=== PATIENT | male | born 1970 | race Caucasian/White ===

== ENCOUNTER → 2022-04-29 08:21 | Outpatient (BNVA) | payer OTHER, SELFPAY | PROVIDERS: PCP Internal Medicine; Visit Provider Internal Medicine | DX: S39.011D Strain of muscle, fascia and tendon of abdomen, subsequent encounter (principal); S39.012D Strain of muscle, fascia and tendon of lower back, subsequent encounter; W01.0XXD Fall on same level from slipping, tripping and stumbling without subsequent striking against object, subsequent encounter | CPT/HCPCS: 73521; 99203 ==

== ENCOUNTER → 2022-05-04 13:26 | Outpatient (BNVA) | payer OTHER, SELFPAY | PROVIDERS: PCP Internal Medicine; Visit Provider Internal Medicine | DX: S39.011D Strain of muscle, fascia and tendon of abdomen, subsequent encounter (principal); S76.312D Strain of muscle, fascia and tendon of the posterior muscle group at thigh level, left thigh, subsequent encounter; W19.XXXD Unspecified fall, subsequent encounter | CPT/HCPCS: 99213 ==

== ENCOUNTER → 2022-05-10 10:33 | Outpatient (BNVA) | payer OTHER, SELFPAY | PROVIDERS: PCP Internal Medicine; Visit Provider Internal Medicine | DX: S39.011D Strain of muscle, fascia and tendon of abdomen, subsequent encounter (principal); S76.312D Strain of muscle, fascia and tendon of the posterior muscle group at thigh level, left thigh, subsequent encounter; W19.XXXD Unspecified fall, subsequent encounter | CPT/HCPCS: 99213 ==

== ENCOUNTER → 2022-05-17 12:54 | Outpatient (BNVA) | payer OTHER, SELFPAY | PROVIDERS: PCP Internal Medicine; Visit Provider Internal Medicine | DX: M79.652 Pain in left thigh (principal); S76.312A Strain of muscle, fascia and tendon of the posterior muscle group at thigh level, left thigh, initial encounter; W19.XXXA Unspecified fall, initial encounter | CPT/HCPCS: 99213 ==

== ENCOUNTER → 2022-05-25 10:40 | Outpatient (BNVA) | payer OTHER, SELFPAY | PROVIDERS: PCP Internal Medicine; Visit Provider Internal Medicine | DX: M79.662 Pain in left lower leg (principal) | CPT/HCPCS: 99213 ==

== ENCOUNTER 2022-05-26 07:21 | Outpatient (REF) | payer OTHER, SELFPAY ==
--- NOTE | ~2022-05-26 | MR_ITS ---
EXAMINATION: MRI FEMUR WITHOUT CONTRAST, LEFT CLINICAL INFORMATION: Left hamstring and groin strain. Thigh pain following injury on 03/03/2022. Persistent pain. COMPARISON: None TECHNIQUE: Multisequence MR imaging of the left femur was obtained without contrast on a high field strength scanner. FINDINGS: BONE: No stress reaction, fracture, or avascular crisis. No evidence of acute osseous injury. No concerning lytic or blastic osseous lesion. MUSCLES/TENDONS: Mild edema adjacent to the proximal left hamstring tendon with undersurface fluid signal measuring 1.8 cm in craniocaudal dimension and mild reactive marrow edema within the adjacent ischial tuberosity. No full-thickness tendon tear or tendon retraction. The remaining visualized muscles and tendons are unremarkable without edema or evidence of acute injury. SOFT TISSUES: No abnormal soft tissue mass or fluid collection. The visualized intrapelvic structures are unremarkable. MR/MR femur LT wo con IMPRESSION: Proximal left hamstring tendinosis with undersurface partial tearing measuring 1.8 cm in cranial caudal dimension. No transverse tendon tear or tendon retraction.
== END 2022-05-26 07:22 | disposition home or self-care (01) ==
LOC: HO.MRI 07:21
PROVIDERS: Visit Provider Internal Medicine
DX: S76.912D Strain of unspecified muscles, fascia and tendons at thigh level, left thigh, subsequent encounter (principal); S39.011D Strain of muscle, fascia and tendon of abdomen, subsequent encounter
CPT/HCPCS: 73718

== ENCOUNTER → 2022-06-04 10:07 | Outpatient (BNVA) | payer OTHER, SELFPAY | PROVIDERS: PCP Internal Medicine; Visit Provider Physician Assistant Medical | DX: S76.312D Strain of muscle, fascia and tendon of the posterior muscle group at thigh level, left thigh, subsequent encounter (principal); W01.0XXD Fall on same level from slipping, tripping and stumbling without subsequent striking against object, subsequent encounter | CPT/HCPCS: 99213 ==

== ENCOUNTER → 2022-06-17 10:04 | Outpatient (BNVA) | payer OTHER, SELFPAY | PROVIDERS: PCP Internal Medicine; Visit Provider Physician Assistant | DX: S76.312A Strain of muscle, fascia and tendon of the posterior muscle group at thigh level, left thigh, initial encounter (principal) | CPT/HCPCS: 99202 ==

== ENCOUNTER 2022-07-09 14:00 | Outpatient (RCR) | payer OTHER, SELFPAY ==
--- NOTE | 2022-05-13 10:32 | MHC.PT.EP ---
[facility] [place] Office [place] Office [address] [phone] F: [phone] F: [phone] F: [phone] F: [phone] Physical Therapy Plan of Care Date of Evaluation: Date of Surgery: NA Diagnosis: L pelvic strain and R groin strain Assessment: Gus is a 51 year old male who is referred to PT for L pelvic strain and R groin strain . He injured himself at work about 2 months back following a fall in split. He has had no resolution of pain following the fall. Per pt his symptoms are about the same and has pain with work activities which require him to walk, negotiate stairs and perform step ups. On PT examination he presented with TTP over L hamstring proximally, L ischial tuberosity, R groin, 7/10 pain with weight bearing, decreased L hip and knee ROM, decreased muscle strength in B hip and knee, altered posture, balance and gait. He is independent with ADLS however has pain with activities like dressing lower body. 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 He would benefit from skilled PT to address the aforementioned impairments and improve tolerance to functional activities. Frequency and Duration: The patient will be seen 2/week for 5 weeks Short Term Goals: 1. Pt will have 50% decrease in pain which will help him sit symmetrically for 30 minutes in 2 weeks. 2. Pt will be able to move hip and knee through full plane of motion without pain which will enable him to negotiate stairs with a pain no more than 2/10 in Penitentiary Goals: 1. Pt will demonstrate an increase in muscle strength by 1/2 grade which will help him walk for 30 minutes without pain in 4 weeks. 2. Pt will be independent with HEP and return to PLOF in 5 weeks. Treatment Plan: Modalities to reduce pain, spasms and effusion. Manual therapy to restore motion and function. Therapeutic exercise to improve strength and flexibility. Neuromuscular re-education for posture and balance. Therapeutic activities to return to functional activities of daily living. Electronically signed by: Reina Lacey PT DPT Please sign and return to therapist. Thank you for your referral.
--- NOTE | 2022-07-09 15:03 | MHC.PT.DC ---
[facility] [place] Office [place] Office [place] Office [address] [phone] F: [phone] F: [phone] F: [phone] F: [phone] Physical Therapy Discharge Report Diagnosis: L pelvic strain and R groin strain Date of Surgery: NA Date of Evaluation: 05/13/22 Date of Discharge: 07/09/22 Treatments to Date: 16 Cancellations to Date: 0 No Shows to Date: 0 Discharge Status: Improved Function Independent with HEP Discharge Summary: Gus has completed 16 PT visits. He reports of having 60% improvement in his symptoms but still feels the pain in his groin and hamstring. He has improved significantly and is independent with all HEPs. He is therefore being d/c from PT to HEP. He was advised to continue with stretches and strengthening. In PT he has been able perform lifting of weighted boxes and pushing weighted objects. He had no increase in pain or discomfort with this. He is therefore being d/c from PT today. Electronically signed by: Reina Lacey, PT DPT Please sign and return to therapist. Thank you for your referral.
== END 2022-07-09 15:03 | disposition home or self-care (01) ==
LOC: HO.PT 14:00
PROVIDERS: Visit Provider Internal Medicine
DX: S39.013D Strain of muscle, fascia and tendon of pelvis, subsequent encounter (principal); S39.011D Strain of muscle, fascia and tendon of abdomen, subsequent encounter
CPT/HCPCS: 97014; 97035; 97110; 97140; 97161; 97530

== ENCOUNTER → 2022-07-15 10:55 | Outpatient (BNVA) | payer OTHER, BC, SELFPAY | PROVIDERS: PCP Internal Medicine; Visit Provider Physician Assistant | DX: S76.312D Strain of muscle, fascia and tendon of the posterior muscle group at thigh level, left thigh, subsequent encounter (principal) | CPT/HCPCS: 99212 ==

== ENCOUNTER → 2022-08-12 12:58 | Outpatient (BNVA) | payer OTHER, MEDICAID, SELFPAY | PROVIDERS: PCP Internal Medicine; Visit Provider Physician Assistant | DX: S76.312D Strain of muscle, fascia and tendon of the posterior muscle group at thigh level, left thigh, subsequent encounter (principal) | CPT/HCPCS: 99212 ==

== ENCOUNTER → 2022-09-13 12:54 | Outpatient (BNVA) | payer OTHER, MEDICAID, SELFPAY | PROVIDERS: PCP Internal Medicine; Visit Provider Physician Assistant | DX: S76.312A Strain of muscle, fascia and tendon of the posterior muscle group at thigh level, left thigh, initial encounter (principal) | CPT/HCPCS: 99212 ==

== ENCOUNTER → 2022-10-26 13:24 | Outpatient (BNVA) | payer OTHER, SELFPAY | PROVIDERS: PCP Internal Medicine; Visit Provider Physician Assistant | DX: S76.312D Strain of muscle, fascia and tendon of the posterior muscle group at thigh level, left thigh, subsequent encounter (principal) | CPT/HCPCS: 99212 ==

== ENCOUNTER 2022-11-10 14:00 | Outpatient (RCR) | payer OTHER, SELFPAY ==
--- NOTE | 2022-10-01 13:34 | MHC.PT.EP ---
[facility] [place] Office [place] Office [place] Office [address] [phone] F: [phone] F: [phone] F: [phone] F: [phone] Physical Therapy Plan of Care Date of Evaluation: Date of Surgery: N/A Diagnosis: strain of muscle, fascia, and tendon of the posterior muscle group at thigh level, left thigh Left hamstring muscle strain Assessment: Pt is a pleasant 51yo M who presents to PT with L hamstring pain after falling on 03/03/22 resulting in landing in split position. He was treated for PT at this facility for 16 visits from 05/13/22-07/09/22 and continues to have pain in L proximal hamstring. He presents to PT with current impairments in pain, decreased L hip ROM, decreased L LE strength, decreased core stabilization, soft tissue restrictions, decreased muscle length, and impaired gait. He is limited functionally by prolonged standing, prolonged walking, squatting, and stair navigation. He is a good candidate for skilled PT in order to address current impairments to facilitate return to PLOF. He is recommended to be seen 2x/week for 3 weeks and will be reassessed at that time. Frequency and Duration: The patient will be seen 2x/week for 3 weeks Short Term Goals: Pt will be I with HEP to promote self management of symptoms Pt will improve L hip ext strength to at least 4-/5 Senior Living Goals: Pt will tolerate standing and walking > 60 min with improved gait mechanics and minimal to no pain Pt will improve L hip extension strength by 1 grade to assist with standing functional tasks Pt will demonstrate improvements in function as evidenced by statistically significant improvement in LEFI outcome measure Treatment Plan: Modalities to reduce pain, spasms and effusion. Manual therapy to restore motion and function. Therapeutic exercise to improve strength and flexibility. Neuromuscular re-education for posture and balance. Therapeutic activities to return to functional activities of daily living. Electronically signed by: Milagro Cox, PT, DPT Please sign and return to therapist. Thank you for your referral.
--- NOTE | 2022-11-10 15:21 | MHC.PT.DC ---
[facility] [place] Office [place] Office [place] Office [address] [phone] F: [phone] F: [phone] F: [phone] F: [phone] Physical Therapy Discharge Report Diagnosis: strain of muscle, fascia, and tendon of the posterior muscle group at thigh level, left thigh Left hamstring muscle strain Date of Surgery: N/A Date of Evaluation: 09/30/22 Date of Discharge: 11/10/22 Treatments to Date: 11 Cancellations to Date: 0 No Shows to Date: 0 Discharge Status: Achieved Goals Improved Function Independent with HEP Recommend MD Follow-up Discharge Summary: Pt has made good progress since SOC. He has met his STGs and LTGs. He has improved ROM and strength to WFL throughout L LE. He reports overall feeling much better but does report he continues to have pain 3-4/10 with work related tasks including repetitive stair climbing and prolonged standing/walking. Pt is I with HEP. Pt is being D/C from skilled PT. Provided pt with printed, updated copy of HEP and pt verbalized understanding. I recommend pt perform HEP consistently for a few weeks and follow up with MD if pain persists, pt verbalized understanding and reports no further questions or concerns for PT at this time. Electronically signed by: Milagro Cox, PT, DPT Please sign and return to therapist. Thank you for your referral.
== END 2022-11-10 15:22 | disposition home or self-care (01) ==
LOC: HO.PT 14:00
PROVIDERS: Visit Provider Physician Assistant
DX: S76.312A Strain of muscle, fascia and tendon of the posterior muscle group at thigh level, left thigh, initial encounter (principal)
CPT/HCPCS: 97110; 97162; 97164

== ENCOUNTER 2022-11-12 15:23 | Emergency (ER) | payer OTHER, SELFPAY ==
--- NOTE | ~2022-11-12 | XR_ITS ---
EXAMINATION: XR CHEST CLINICAL INFORMATION: Cough, fever COMPARISON: 02/11/2020 TECHNIQUE: 2 views of the chest were obtained. FINDINGS: Lungs are clear. No focal consolidation or mass. Normal pulmonary vascularity. No pleural effusion or pneumothorax. Normal heart size. No acute osseous abnormality. XR/XR chest 2V IMPRESSION: No acute pulmonary disease.
[2022-11-12 16:00] VITALS: BP 134/78; PULSE 63; RESP 18; TEMP 37; O2SAT 92; BMI 34.2
--- NOTE | 2022-11-12 16:03 | ED.URI ---
HPI - URI/Sore Throat General Chief Complaint: Upper Respiratory Symptoms <Josselin Jimenez NP - Last Filed: 11/12/22 16:05> Stated Complaint: Cough Not Feeling Well <Josselin Jimenez NP - Last Filed: 11/12/22 16:05> Time Seen by Provider: 11/12/22 17:00 <Josselin Jimenez NP - Last Filed: 11/12/22 16:05> Source: patient <SHANA Trinh - Last Filed: 11/12/22 18:31> Mode of arrival: ambulatory <SHANA Trinh Last Filed: 11/12/22 18:31> Limitations: no limitations <SHANA Trinh Last Filed: 11/12/22 18:31> History of Present Illness HPI Narrative: 51 year old male presents with subjective fever, dry cough, malaise, fatigue, shortness of breath x1 week. Patient tells me the cough is a dry cough, he tells me he has been progressively worsening he tells me he has chest discomfort when he coughs however not at rest. Reports shortness of breath with coughing. No history of PE or DVT. No sick contacts. Denies fevers, chills, headache, vision changes, dizziness, nausea, vomiting, abdominal pain. <SHANA Trinh - Last Filed: 11/12/22 18:31> Related Data Home Medications: Previous Rx's Medication Instructions Recorded albuterol sulfate 90 mcg/actuation 2 inh inhalation Q4-6H PRN 11/12/22 breath activated powder inhaler shortness of breath or wheezing #1 ea azithromycin 250 mg tablet See Rx Instructions PO .COMPLEX #6 11/12/22 tabs prednisone 20 mg tablet 40 mg PO DAILY 5 days #10 tabs 11/12/22 <Josselin Jimenez NP - Last Filed: 11/12/22 16:05> Allergies/Adverse Reactions: Allergies Allergy/AdvReac Type Severity Reaction Status Date / Time aspirin [ASPIRIN] Allergy Unknown SWOLLEN, Verified 09/13/22 13:00 swelling, swelling <ROBERTO Bennett Last Filed: 11/12/22 16:05> Review of Systems Review of Systems: Constitutional : No Weight loss, No Fever, No Chills, + Fatigue, + Malaise ENT/Mouth : No sore throat, No Rhinorrhea Eyes: No Eye Pain, No Swelling, No Redness Cardiovascular : No Chest Pain, + SOB, No Dyspnea on Exertion, No Orthopnea, No Edema, No Palpitations Respiratory : + Cough, No Sputum, No Wheezing Gastrointestinal : No Nausea, No Vomiting, No Diarrhea, No Constipation, No abdominal Pain, No Hematochezia, No Melena Genitourinary : No Dysuria, No Urinary Frequency, No Hematuria, Musculoskeletal : No joint pain, No Myalgias, No Joint Swelling Skin : No Skin Lesions, No rash Neuro : No Weakness, No Numbness, No Dizziness, No Headache Psych : No Anxiety/Panic, No Depression All other systems reviewed and are negative <SHANA Trinh - Last Filed: 11/12/22 18:31> Yes all other systems are reviewed and are negative <SHANA Trinh - Last Filed: 11/12/22 18:31> COUNTS INCLUDE 234 BEDS AT THE [facility] Past Medical History Attestation statement: The following information was validated with the patient. <SHANA Trinh - Last Filed: 11/12/22 18:31> Source: old records reviewed and nursing notes reviewed <SHANA Trinh - Last Filed: 11/12/22 18:31> Surgical History: Surgical History No pertinent past surgical history <Josselin Jimenez NP - Last Filed: 11/12/22 16:05> Family History Family History: Family History Mother Hypertension Father Diabetes <Josselin Jimenez NP - Last Filed: 11/12/22 16:05> Social History Social History: Social History Housing: House Alcohol intake: current Alcohol intake frequency: holidays/special occasions only Patient Tobacco Use Status: Former Tobacco user Tobacco use type: Cigarette Smoked in Last 30 Days: No e-Cigarette/Vaping Use: Never Used Second Hand Smoke Exposure: No Use of substances other than those prescribed or required for medical reasons: No Advance Directives: No Advance Directives Information Provided: No service: No Current occupational status: employed 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 Cognitive needs: No Hearing needs: No Vision needs: Yes <Josselin Jimenez NP - Last Filed: 11/12/22 16:05> Physical Exam Vital Signs: Vital Signs: Last Vital Signs Temp 98.5 F 11/12/22 17:20 Pulse 60 11/12/22 17:34 Resp 18 11/12/22 17:34 BP 134/78 11/12/22 16:00 Pulse Ox 96 11/12/22 17:20 O2 Del Method 11/12/22 17:20 BMI result Body Mass Index 34.2 <Josselin Jimenez NP - Last Filed: 11/12/22 16:05> Vital Signs: Last Vital Signs Temp 98.5 F 11/12/22 17:20 Pulse 60 11/12/22 17:34 Resp 18 11/12/22 17:34 BP 134/78 11/12/22 16:00 Pulse Ox 96 11/12/22 17:20 O2 Del Method 11/12/22 17:20 BMI result Body Mass Index 34.2 vss patient currently saturating 96% on room air. <SHANA Trinh - Last Filed: 11/12/22 18:31> Appearance: Alert.? Oriented X3.? No acute distress.? Speaking in full sentences, controlling secretions well. No use of intercostal muscles. Head: Normocephalic, atraumatic, no step-offs or deformities Eyes: Pupils equal, round and reactive to light.? ENT: Pharynx normal.??External ears normal, TMs normal bilaterally and EAC's normal. No pain with manipulation of external ears bilaterally. No mastoid tenderness. Neck: Normal inspection.? Neck supple.? CVS: Normal heart rate and rhythm.? Pulses normal.? Respiratory: No respiratory distress.? Breath sounds with expiratory wheezing throughout.? Abdomen: Soft and nontender.? Skin: Skin warm and dry.? Normal skin color.? Normal skin turgor.? Extremities: No lower extremity edema.? No calf ttp. 5/5 strength to bilateral upper and lower extremities Neuro: Oriented X 3.? No motor deficit.? No sensory deficit. CN 2-12 intact <SHANA Trinh - Last Filed: 11/12/22 18:31> Course Course Course Narrative: This is a rapid medical exam. Defer additional HPI, ROS, P Department better. Patient reports here with subjective fever, cough, dizziness, shortness of breath. Vitals stable. Will check testing for flu, COVID, RSV and chest x-ray <Josselin Jimenez NP - Last Filed: 11/12/22 16:05> Reevaluation(s) Reevaluation #1: Flu/COVID/RSV negative. Chest x-ray unremarkable. Pending re-evaluation after albuterol treatment. <SHANA Trinh - Last Filed: 11/12/22 18:31> Time: 17:07 <SHANA Trinh - Last Filed: 11/12/22 18:31> Reevaluation #2: Patient reports improvement after treatment. Likely upper respiratory infection, patient will be discharged home on Z-Larry, prednisone and albuterol. Educated patient on diagnosis and treatment plan, answered all question, patient verbalizes understanding. At this time patient will be discharged home, advised to return with new or worsening symptoms. Educated on worrisome signs and symptoms and when to return. At this time I feel comfortable discharge home. <SHANA Trinh - Last Filed: 11/12/22 18:31> Time: 18:30 <SHANA Trinh - Last Filed: 11/12/22 18:31> Medications Administered Discontinued Medications Generic Name Dose Route Start Last Admin Trade Name Freq PRN Reason Stop Dose Admin Albuterol Sulfate 5 mg/ 7.5 mg 11/12/22 17:21 11/12/22 17:34 Albuterol Sulfate 2.5 mg INHALE 11/12/22 17:22 7.5 mg ONCE ONE Administration <Josselin Jimenez NP - Last Filed: 11/12/22 16:05> Medications Administered Discontinued Medications Generic Name Dose Route Start Last Admin Trade Name Freq PRN Reason Stop Dose Admin Albuterol Sulfate 5 mg/ 7.5 mg 11/12/22 17:21 11/12/22 17:34 Albuterol Sulfate 2.5 mg INHALE 11/12/22 17:22 7.5 mg ONCE ONE Administration <SHANA Trinh - Last Filed: 11/12/22 18:31> Medical Decision Making Medical Decision Making [facility] Narrative: 1705 51 year old male history of obesity presents to the ED for complaints of SOB, dry cough, fatigue, malaise X 1 week. To note patient reported dizziness to triage however denied to this PA-C. PE with expiratory wheezing throughout . Neuro nonfocal, cerebellar intact. Likely URI with asthma. Unlikely PNA, PE, CHF, ACS. Patient PERC negative. Saturating well on room air. Plan-viral testing, x-ray, will give patient albuterol. <SHANA Trinh - Last Filed: 11/12/22 18:31> Differential Diagnosis Differential Diagnoses: The differential diagnosis associated with the presentation includes <SHANA Trinh - Last Filed: 11/12/22 18:31> Likely URI. Unlikely PNA, PE, CHF, ACS <SHANA Trinh - Last Filed: 11/12/22 18:31> Admission/Observation Consideration of admission/observation: Escalation of care including admission/observation considered <SHANA Trinh - Last Filed: 11/12/22 18:31> Lab Data [facility] Lab Attestation statement: I reviewed the patient's lab results. <SHANA Trinh - Last Filed: 11/12/22 18:31> Result Diagrams: 11/12/22 17:32 <Josselin Jimenez NP - Last Filed: 11/12/22 16:05> Labs: Lab Results 11/12/22 11/12/22 Range/Units 16:04 17:32 WBC 9.2 (4.8-10.8) X10*3/uL RBC 5.09 (4.60-5.80) X10*6/uL Hgb 15.8 (14.0-18.0) g/dl Hct 46.0 (42.0-52.0) % MCV 90.4 (80.0-98.0) fL MCH 31.0 (27.0-33.0) pg MCHC 34.3 (31.0-36.0) g/dl RDW 12.5 (11.0-16.0) % Plt Count 192 (160-400) X10*3/uL MPV 9.3 L (9.4-12.4) fL Immature Gran % (Auto) 0.3 (0.0-0.4) % Neut % (Auto) 60.3 (45-73) % Lymph % (Auto) 24.3 (20-40) % Hopkins % (Auto) 9.0 (2-11) % Eos % (Auto) 5.3 H (0-4) % Baso % (Auto) 0.8 (0-2) % Lymph # (Auto) 2.2 (1.2-4.9) X10*3/uL Hopkins # (Auto) 0.8 (0.1-1.2) X10*3/uL Eos # (Auto) 0.5 H (0.0-0.4) X10*3/uL Baso # (Auto) 0.1 (0.0-0.2) X10*3/uL Abs Immat Gran (auto) 0.03 (0.00-0.03) X10*3/uL Absolute Neuts (auto) 5.6 (2.0-8.3) x10*3/uL Absolute Nucleated RBC 0.000 (0.0-0.012) X10*3/uL Nucleated RBC % (auto) 0.0 (0.0-0.2) /100WBC Influenza Type A (PCR) NEGATIVE (Negative) Influenza Type B (PCR) NEGATIVE (Negative) RSV RNA Qual (PCR) NEGATIVE (Negative) SARS-CoV-2 RNA (RT-PCR) NEGATIVE (Negative) <Josselin Jimenez, BAND SAW OPERATOR - Last Filed: 11/12/22 16:05> Lab Results 11/12/22 11/12/22 Range/Units 16:04 17:32 WBC 9.2 (4.8-10.8) X10*3/uL RBC 5.09 (4.60-5.80) X10*6/uL Hgb 15.8 (14.0-18.0) g/dl Hct 46.0 (42.0-52.0) % MCV 90.4 (80.0-98.0) fL MCH 31.0 (27.0-33.0) pg MCHC 34.3 (31.0-36.0) g/dl RDW 12.5 (11.0-16.0) % Plt Count 192 (160-400) X10*3/uL MPV 9.3 L (9.4-12.4) fL Immature Gran % (Auto) 0.3 (0.0-0.4) % Neut % (Auto) 60.3 (45-73) % Lymph % (Auto) 24.3 (20-40) % Hopkins % (Auto) 9.0 (2-11) % Eos % (Auto) 5.3 H (0-4) % Baso % (Auto) 0.8 (0-2) % Lymph # (Auto) 2.2 (1.2-4.9) X10*3/uL Hopkins # (Auto) 0.8 (0.1-1.2) X10*3/uL Eos # (Auto) 0.5 H (0.0-0.4) X10*3/uL Baso # (Auto) 0.1 (0.0-0.2) X10*3/uL Abs Immat Gran (auto) 0.03 (0.00-0.03) X10*3/uL Absolute Neuts (auto) 5.6 (2.0-8.3) x10*3/uL Absolute Nucleated RBC 0.000 (0.0-0.012) X10*3/uL Nucleated RBC % (auto) 0.0 (0.0-0.2) /100WBC Influenza Type A (PCR) NEGATIVE (Negative) Influenza Type B (PCR) NEGATIVE (Negative) RSV RNA Qual (PCR) NEGATIVE (Negative) SARS-CoV-2 RNA (RT-PCR) NEGATIVE (Negative) <SHANA Trinh - Last Filed: 11/12/22 18:31> Critical Care Time Critical Care Time Critical Care Time: No <SHANA Trinh - Last Filed: 11/12/22 18:31> Discharge Plan Discharge Clinical Impression: Viral infection <Josselin Jimenez NP - Last Filed: 11/12/22 16:05> Patient Disposition: Home, Self-Care <Josselin Jimenez NP - Last Filed: 11/12/22 16:05> Instructions: Viral Syndrome (ED) <Josselin Jimenez NP - Last Filed: 11/12/22 16:05> Additional Instructions: Take your medications as prescribed. If you were prescribed antibiotics today, it is important that you take your medication to their entirety, do not skip any doses, do not finish them early. Follow-up with your primary care provider this week. Return to the emergency department with new or worsening symptoms. Such as fevers, chills, chest pain, shortness of breath, nausea, vomiting, dizziness, headache, vision changes, lethargy In case of emergency call 911 <Josselin Jimenez NP - Last Filed: 11/12/22 16:05> Prescriptions: New azithromycin 250 mg tablet See Rx Instructions .ROUTE .COMPLEX Qty: 6 0RF Rx Instructions: For 250 mg dose pack: take 500 mg today (day 1), then 250 mg for 4 days (days 2-5) albuterol sulfate 90 mcg/actuation aerosol powdr breath activated 2 inh inhalation Q4-6H PRN (Reason: shortness of breath or wheezing) Qty: 1 0RF prednisone 20 mg tablet 40 mg PO DAILY 5 Days Qty: 10 0RF <Josselin Jimenez NP - Last Filed: 11/12/22 16:05> Referrals: Sayra Geronimo MD [Primary Care Provider] - 2 days <Josselin Jimenez NP - Last Filed: 11/12/22 16:05> Stand Alone Forms: Work/School Release <Josselin Jimenez NP - Last Filed: 11/12/22 16:05>
[2022-11-12 16:46] LABS: Influenza A PCR NEGATIVE (Negative); Influenza B PCR NEGATIVE (Negative); Resp Syncy Virus RNA Qual PCR NEGATIVE (Negative); SARS COV2 PCR INHOUSE NEGATIVE (Negative)
[2022-11-12 17:20] VITALS: TEMP 36.9; O2SAT 96
[2022-11-12 17:34] VITALS: PULSE 60; RESP 18; O2SAT 97
[2022-11-12] MEDS: Albuterol Sulfate 5 MG, Albuterol Sulfate (0.083%) 2.5 MG 7.5 MG INHALE (17:34)
[2022-11-12 17:42] LABS: Basophils Absolute Auto 0.1 X10*3/uL (0.0-0.2); Basophils Percent Auto 0.8 % (0-2); Eosinophils Absolute Auto 0.5 X10*3/uL (0.0-0.4); Eosinophils Percent Auto 5.3 % (0-4); Hemoglobin 15.8 g/dl (14.0-18.0); Imm Gran Abs Auto 0.03 X10*3/uL (0.00-0.03); Imm Gran Pct Auto 0.3 % (0.0-0.4); Lymphocytes Absolute Auto 2.2 X10*3/uL (1.2-4.9); Lymphocytes Percent Auto 24.3 % (20-40); MANUAL DIFF FLAG NO; Mean Corpuscular HGB Conc 34.3 g/dl (31.0-36.0); Mean Corpuscular Volume 90.4 fL (80.0-98.0); Mean Platelet Volume 9.3 fL (9.4-12.4); Monocytes Absolute Auto 0.8 X10*3/uL (0.1-1.2); Neutrophils Absolute Auto 5.6 x10*3/uL (2.0-8.3); Neutrophils Percent Auto 60.3 % (45-73); Platelet Count 192 X10*3/uL (160-400); Red Blood Count 5.09 X10*6/uL (4.60-5.80); Red Cell Distribution Width 12.5 % (11.0-16.0); White Blood Count 9.2 X10*3/uL (4.8-10.8)
== END 2022-11-12 19:09 | disposition home or self-care (01) ==
PROVIDERS: Nurse Practitioner Family; Physician Assistant; Emergency Provider Emergency Medicine; PCP Internal Medicine
DX: B34.9 Viral infection, unspecified (principal); R05.9 Cough, unspecified; R50.9 Fever, unspecified; R06.02 Shortness of breath; Z20.828 Contact with and (suspected) exposure to other viral communicable diseases; Z20.822 Contact with and (suspected) exposure to COVID-19; Z79.899 Other long term (current) drug therapy; Z87.891 Personal history of nicotine dependence
CPT/HCPCS: 0241U; 36415; 71046; 85025; 94640; 99284

== ENCOUNTER 2023-03-21 11:06 | Emergency (ER) | payer OTHER, SELFPAY ==
--- NOTE | ~2023-03-21 | XR_ITS ---
EXAMINATION: XR CHEST CLINICAL INFORMATION: Cough and chest pain COMPARISON: None available. TECHNIQUE: 2 views of the chest were obtained. FINDINGS: No significant abnormality is noted involving the heart, lungs, mediastinum, bony thorax or soft tissues. XR/XR chest 2V IMPRESSION: Unremarkable examination.
[2023-03-21 11:38] VITALS: BP 134/77; PULSE 58; RESP 20; TEMP 37.1; O2SAT 96; BMI 38.0
--- NOTE | 2023-03-21 11:38 | ECG_ITS ---
Test Reason : chest pain Blood Pressure : / mmHG Vent. Rate : 059 BPM Atrial Rate : 059 BPM P-R Int : 176 ms QRS Dur : 088 ms QT Int : 400 ms P-R-T Axes : 035 048 040 degrees QTc Int : 396 ms Sinus bradycardia Otherwise normal ECG No previous ECGs available Referred By: Josselin Mcneill Electronically Signed By:JAMES PINEDA
--- NOTE | 2023-03-21 11:38 | ED.CHESTPAIN ---
HPI - Chest Pain General Chief Complaint: Upper Respiratory Symptoms Stated Complaint: cough chest pain Time Seen by Provider: 03/21/23 13:28 Source: patient Mode of arrival: ambulatory Limitations: no limitations History of Present Illness HPI narrative: Patient is a 52 year old assigned male at with no reported medical history presenting to the emergency department today with a cough. Patient states that he has had a persistent cough over the last week and a half. Patient denies any dizziness, lightheadedness, abdominal pain, nausea, vomiting, fever, chills, blurry vision, double vision, loss of vision, chest pain, difficulty breathing, shortness of breath, back pain, night sweats, pain with urination, increased urinary frequency, increased urinary urgency, blood in his urine or stool, syncope or a near syncopal episode, recent trauma or falls, bowel incontinence, bladder incontinence, bowel retention, bladder retention, or any other complaints at this time. Onset (ago): week(s) Severity: mild Associated symptoms: cough Treatment prior to arrival: none Related Data Previous Rx's Medication Instructions Recorded albuterol sulfate 90 mcg/actuation 2 inh inhalation Q4-6H PRN 11/12/22 breath activated powder inhaler shortness of breath or wheezing #1 ea azithromycin 250 mg tablet See Rx Instructions PO .COMPLEX #6 11/12/22 tabs fluticasone propionate 50 1 inh inhalation BID 30 days #60 ea 11/24/22 mcg/actuation blister powder for inhalation (Flovent Diskus) prednisone 20 mg tablet 40 mg PO DAILY 5 days #10 tabs 11/24/22 albuterol sulfate 90 mcg/actuation 1 inh inhalation QID PRN shortness 03/21/23 aerosol inhaler of breath or wheezing #8.5 grams doxycycline hyclate 100 mg tablet 100 mg PO BID 7 days #14 tabs 03/21/23 prednisone 20 mg tablet 20 mg PO DAILY 7 days #7 tabs 03/21/23 Allergies Allergy/AdvReac Type Severity Reaction Status Date / Time aspirin [ASPIRIN] Allergy Unknown SWOLLEN, Verified 11/24/22 14:41 swelling, swelling Review of Systems Constitutional: Constitutional: Reports no additional constitutional complaints, Denies chills, Denies fever(s) and Denies night sweats Eyes: Eyes: Reports no additional eye complaints, Denies blurry vision, Denies change in vision, Denies diplopia, Denies eye discharge, Denies loss of vision and Denies eye pain ENT: Denies dizziness Cardiovascular: Cardiovascular: Reports no additional cardiovascular complaints, Denies chest pain, Denies lightheadedness, Denies Loss of Consciousness and Denies dyspnea Respiratory: Respiratory: Reports no additional respiratory complaints, Reports cough and Denies dyspnea Gastrointestinal: Gastrointestinal: Reports no additional gastrointestinal complaints, Denies abdominal pain, Denies melena, Denies hematochezia, Denies change in bowel habits and Denies change in stool character Genitourinary: Genitourinary: Reports no additional male genitourinary complaints, Denies hematuria, Denies oliguria, Denies difficulty urinating, Denies dysuria, Denies urinary frequency, Denies urinary hesitancy, Denies urinary incontinence and Denies urinary urgency Musculoskeletal: Musculoskeletal: Reports no additional musculoskeletal complaints, Denies numbness and Denies tingling Neurologic: Denies dizziness, Denies loss of vision, Denies numbness and Denies tingling Psychiatric: Psychiatric: Reports no additional psychiatric complaints Endocrine: Endocrine: Reports no additional endocrine complaints Hematologic/Lymphatic: Hematologic/Lymphatic: Reports no additional hematologic/lymphatic complaints Allergic/Immunologic: Allergic/Immunologic: Reports no additional allergic/immunologic complaints PMFSH Past Medical History Attestation statement: The following information was validated with the patient. 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 Cognitive needs: No Hearing needs: No Vision needs: Yes Physical Exam Vital Signs: Vital Signs: Last Vital Signs Temp 98.8 F 03/21/23 11:38 Pulse 58 03/21/23 11:38 Resp 20 05/22/23 11:38 BP 134/77 03/21/23 11:38 Pulse Ox 96 03/21/23 11:38 O2 Del Method Room Air 03/21/23 11:38 BMI result Body Mass Index 38.0 Const: General: cooperative, no acute distress, alert and awake Nutritional Appearance: well nourished Orientation/consciousness: patient oriented x3 Limitations: no limitations HEENT: Head: Yes normal to inspection and Yes atraumatic Ears: hearing grossly normal bilaterally and external ears normal General nose exam: Normal external nose present, no nasal discharge noted and no epistaxis Face and sinus: Yes normal facial exam, No abrasion and No laceration Mouth: Normal oral and palatal mucosa present, no drooling and no muffled voice Eyes: General: appearance normal, both eyes and all related structures Periorbital: periorbital findings normal Eyelids: Yes eyelids normal Conjunctivae: conjunctivae normal Pupils: Equal, round and reactive pupils present EOM: EOMs intact bilaterally Neck: Neck: Yes normal visual inspection, Yes full ROM and Yes no lymphadenopathy Chest: Chest palpation & inspection: normal inspection of the chest Resp: Effort & Inspection: normal respiratory effort and able to speak in complete sentences Auscultation: clear to auscultation bilaterally Cardio: Rate: regular rate Rhythm: regular rhythm GI: Inspection: Yes normal to inspection Neuro: General: patient oriented x3 and moves all extremities Cranial nerves: Yes Equal, round and reactive pupils present Cognition (Neuro): normal cognition Motor exam (neuro): 5/5 motor strength present throughout Sensory Exam: Normal double simultaneous stimulation for sensation Coordination: [id number] test normal Extrem: General: Yes normal to inspection, Yes full ROM and Yes capillary refill normal Psych: Appearance: grossly normal Mental Status: mental status grossly normal Affect: normal affect Attitude: cooperative Thought process: Normal thought process present Thought content: Normal thought content present Insight: Good insight present (Psych) Course Course Course Narrative: This is a rapid medical exam. Deferred additional HPI, ROS, PE to primary provider. 52 yo male here with URI symptos x 1 week, now with chest pain today with breathing and hemoptysis. WIll check x-rays, EKG, labs. viral testing.. VSS Medical Decision Making Medical Decision Making MDM Narrative: Patient is a 52 year old assigned male at with no reported medical history presenting to the emergency department today with a persistent cough. Patient's physical exam was unremarkable. Patient's blood work was unremarkable. Patient's EKG was unremarkable. Patient's chest x-ray showed no acute process. I explained my physical exam findings as well as all test results to the patient. I answered all questions asked by the patient. I stressed the importance of the patient taking his medication as prescribed. I stressed the importance of the patient following up with his primary care provider. I stressed the importance of the patient returning to the emergency department immediately if his symptoms were to worsen or if he were to develop any dizziness, shortness of breath, difficulty breathing, chest pain, blurry vision, loss of vision, nausea, vomiting, abdominal pain, fever, chills, back pain, or any other complaints. Patient verbalized agreement and understanding with this treatment plan and discharge. Differential Diagnosis Differential Diagnoses: The differential diagnosis associated with the presentation includes URI, cough Lab Data MDM Lab Attestation statement: I reviewed the patient's lab results. 03/21/23 11:50 03/21/23 11:50 Labs: Lab Results 03/21/23 03/21/23 03/21/23 Range/Units 11:50 11:50 11:50 WBC 7.8 (4.8-10.8) X10*3/uL RBC 4.97 (4.60-5.80) X10*6/uL Hgb 15.1 (14.0-18.0) g/dl Hct 45.4 (42.0-52.0) % MCV 91.3 (80.0-98.0) fL MCH 30.4 (27.0-33.0) pg MCHC 33.3 (31.0-36.0) g/dl RDW 12.8 (11.0-16.0) % Plt Count 165 (160-400) X10*3/uL MPV 9.3 L (9.4-12.4) fL Immature Gran % (Auto) 0.4 (0.0-0.4) % Neut % (Auto) 63.5 (45-73) % Lymph % (Auto) 21.8 (20-40) % [place] % (Auto) 8.0 (2-11) % Eos % (Auto) 5.5 H (0-4) % Baso % (Auto) 0.8 (0-2) % Lymph # (Auto) 1.7 (1.2-4.9) X10*3/uL [place] # (Auto) 0.6 (0.1-1.2) X10*3/uL Eos # (Auto) 0.4 (0.0-0.4) X10*3/uL Baso # (Auto) 0.1 (0.0-0.2) X10*3/uL Abs Immat Gran (auto) 0.03 (0.00-0.03) X10*3/uL Absolute Neuts (auto) 4.9 (2.0-8.3) x10*3/uL Absolute Nucleated RBC 0.000 (0.0-0.012) X10*3/uL Nucleated RBC % (auto) 0.0 (0.0-0.2) /100WBC PT 12.7 (10.0-13.1) SEC INR 1.1 (0.9-1.1) Sodium 139 (135-145) mmol/L Potassium 4.3 (3.3-5.1) mmol/L Chloride 107 (96-108) mmol/L Carbon Dioxide 26 (22-29) mmol/L Anion Gap 10 L (12-20) BUN 15 (9-16) mg/dL Creatinine 0.77 (0.5-1.4) mg/dL Estim Creat Clear Calc 137.1 Estimated GFR > 60 Random Glucose 104 (60-115) mg/dL Calcium 8.8 (8.4-10.2) mg/dL Total Bilirubin 0.6 (0.0-1.0) mg/dL Direct Bilirubin 0.2 (0.0-0.5) mg/dL AST 20 (5-37) U/L ALT 27 (0-40) U/L Alkaline Phosphatase 59 (39-117) U/L Troponin I High Sens (<3.5-35.0) ng/L Total Protein 6.7 (6.5-8.0) g/dL Albumin 4.1 (3.5-5.0) g/dL Influenza Type A (PCR) (Negative) Influenza Type B (PCR) (Negative) RSV RNA Qual (PCR) (Negative) SARS-CoV-2 RNA (RT-PCR) (Negative) 03/21/23 03/21/23 Range/Units 11:50 11:50 WBC (4.8-10.8) X10*3/uL RBC (4.60-5.80) X10*6/uL Hgb (14.0-18.0) g/dl Hct (42.0-52.0) % MCV (80.0-98.0) fL MCH (27.0-33.0) pg MCHC (31.0-36.0) g/dl RDW (11.0-16.0) % Plt Count (160-400) X10*3/uL MPV (9.4-12.4) fL Immature Gran % (Auto) (0.0-0.4) % Neut % (Auto) (45-73) % Lymph % (Auto) (20-40) % [place] % (Auto) (2-11) % Eos % (Auto) (0-4) % Baso % (Auto) (0-2) % Lymph # (Auto) (1.2-4.9) X10*3/uL [place] # (Auto) (0.1-1.2) X10*3/uL Eos # (Auto) (0.0-0.4) X10*3/uL Baso # (Auto) (0.0-0.2) X10*3/uL Abs Immat Gran (auto) (0.00-0.03) X10*3/uL Absolute Neuts (auto) (2.0-8.3) x10*3/uL Absolute Nucleated RBC (0.0-0.012) X10*3/uL Nucleated RBC % (auto) (0.0-0.2) /100WBC PT (10.0-13.1) SEC INR (0.9-1.1) Sodium (135-145) mmol/L Potassium (3.3-5.1) mmol/L Chloride (96-108) mmol/L Carbon Dioxide (22-29) mmol/L Anion Gap (12-20) BUN (9-16) mg/dL Creatinine (0.5-1.4) mg/dL Estim Creat Clear Calc Estimated GFR Random Glucose (60-115) mg/dL Calcium (8.4-10.2) mg/dL Total Bilirubin (0.0-1.0) mg/dL Direct Bilirubin (0.0-0.5) mg/dL AST (5-37) U/L ALT (0-40) U/L Alkaline Phosphatase (39-117) U/L Troponin I High Sens 3.4 (<3.5-35.0) ng/L Total Protein (6.5-8.0) g/dL Albumin (3.5-5.0) g/dL Influenza Type A (PCR) NEGATIVE (Negative) Influenza Type B (PCR) NEGATIVE (Negative) RSV RNA Qual (PCR) NEGATIVE (Negative) SARS-CoV-2 RNA (RT-PCR) NEGATIVE (Negative) Independent Interpretation I performed an independent interpretation of an: EKG and Plain X-Ray Interpretation: Vent. Rate: 059 BPM ? ? Atrial Rate: 059 BPM P-R Int: 176 ms? QRS Dur: 088 ms QT Int: 400 ms ? ? ? P-R-T Axes: 035 048 040 degrees QTc Int: 396 ms ? Sinus bradycardia Otherwise normal ECG No previous ECGs available DD/ 1149 My interpretation is in agreement with the radiologist's impression of this imaging study. EXAMINATION: XR CHEST CLINICAL INFORMATION: Cough and chest pain COMPARISON: None available. TECHNIQUE: 2 views of the chest were obtained. FINDINGS: No significant abnormality is noted involving the heart, lungs, mediastinum, bony thorax or soft tissues. XR/XR chest 2V IMPRESSION: Unremarkable examination. Dictated By: Gale Holland MD Signed By: Electronically signed by Gale Holland MD 03/21/23 3871 Discharge Plan Discharge Clinical Impression: Cough, URI, acute Patient Disposition: Home, Self-Care Instructions: Upper Respiratory Infection (DC), Acute Cough (ED) Additional Instructions: Follow up with your primary care provider. Return to the emergency department immediately if your symptoms worsen or if you develop any dizziness, shortness of breath, difficulty breathing, chest pain, blurry vision, loss of vision, nausea, vomiting, abdominal pain, fever, chills, back pain, or any other complaints. Prescriptions: New prednisone 20 mg tablet 20 mg PO DAILY 7 Days Qty: 7 0RF doxycycline hyclate 100 mg tablet 100 mg PO BID 7 Days Qty: 14 0RF albuterol sulfate 90 mcg/actuation HFA aerosol inhaler 1 inh inhalation QID PRN (Reason: shortness of breath or wheezing) Qty: 8.5 0RF No Action azithromycin 250 mg tablet See Rx Instructions .ROUTE .COMPLEX Qty: 6 0RF Rx Instructions: For 250 mg dose pack: take 500 mg today (day 1), then 250 mg for 4 days (days 2-5) albuterol sulfate 90 mcg/actuation aerosol powdr breath activated 2 inh inhalation Q4-6H PRN (Reason: shortness of breath or wheezing) Qty: 1 0RF prednisone 20 mg tablet 40 mg PO DAILY 5 Days Qty: 10 0RF Flovent Diskus 50 mcg/actuation blister with device 1 inh inhalation BID 30 Days Qty: 60 1RF Referrals: Sayra Geronimo MD [Primary Care Provider] - Stand Alone Forms: Work/School Release Print Language: Upper Sorbian
[2023-03-21 11:59] LABS: MANUAL DIFF FLAG NO
[2023-03-21 12:00] LABS: Basophils Absolute Auto 0.1 X10*3/uL (0.0-0.2); Basophils Percent Auto 0.8 % (0-2); Eosinophils Absolute Auto 0.4 X10*3/uL (0.0-0.4); Eosinophils Percent Auto 5.5 % (0-4); Hematocrit 45.4 % (42.0-52.0); Hemoglobin 15.1 g/dl (14.0-18.0); Imm Gran Abs Auto 0.03 X10*3/uL (0.00-0.03); Imm Gran Pct Auto 0.4 % (0.0-0.4); Lymphocytes Absolute Auto 1.7 X10*3/uL (1.2-4.9); Lymphocytes Percent Auto 21.8 % (20-40); Mean Corpuscular HGB Conc 33.3 g/dl (31.0-36.0); Mean Corpuscular Hemoglobin 30.4 pg (27.0-33.0); Mean Corpuscular Volume 91.3 fL (80.0-98.0); Mean Platelet Volume 9.3 fL (9.4-12.4); Monocytes Absolute Auto 0.6 X10*3/uL (0.1-1.2); Neutrophils Absolute Auto 4.9 x10*3/uL (2.0-8.3); Neutrophils Percent Auto 63.5 % (45-73); Platelet Count 165 X10*3/uL (160-400); Red Blood Count 4.97 X10*6/uL (4.60-5.80); Red Cell Distribution Width 12.8 % (11.0-16.0); White Blood Count 7.8 X10*3/uL (4.8-10.8)
[2023-03-21 12:06] LABS: INTERNATIONAL NORM RATIO 1.1 (0.9-1.1); Prothrombin Time 12.7 SEC (10.0-13.1)
[2023-03-21 12:15] LABS: Alanine Aminotransferase 27 U/L (0-40); Albumin Level 4.1 g/dL (3.5-5.0); Alkaline Phosphatase 59 U/L (39-117); Anion Gap 10 (12-20); Aspartate Amino Transferase 20 U/L (5-37); Bilirubin Direct 0.2 mg/dL (0.0-0.5); Bilirubin Total 0.6 mg/dL (0.0-1.0); Blood Urea Nitrogen 15 mg/dL (9-16); Calcium 8.8 mg/dL (8.4-10.2); Carbon Dioxide 26 mmol/L (22-29); Chloride 107 mmol/L (96-108); Creatinine Clr Calc Pharmacy 137.1; Estimated Glomerular Filt Rate > 60; Glucose Random 104 mg/dL (60-115); Potassium 4.3 mmol/L (3.3-5.1); Sodium 139 mmol/L (135-145); Total Protein 6.7 g/dL (6.5-8.0)
[2023-03-21 12:21] LABS: Troponin-I High Sensitivity 3.4 ng/L (<3.5-35.0)
[2023-03-21 12:44] LABS: Influenza A PCR NEGATIVE (Negative); Influenza B PCR NEGATIVE (Negative); Resp Syncy Virus RNA Qual PCR NEGATIVE (Negative); SARS COV2 PCR INHOUSE NEGATIVE (Negative)
== END 2023-03-21 14:49 | disposition home or self-care (01) ==
PROVIDERS: Nurse Practitioner Family; Emergency Provider Emergency Medicine; PCP Internal Medicine
DX: J06.9 Acute upper respiratory infection, unspecified (principal); R05.9 Cough, unspecified; Z20.822 Contact with and (suspected) exposure to COVID-19; Z20.828 Contact with and (suspected) exposure to other viral communicable diseases
CPT/HCPCS: 0241U; 71046; 80048; 80076; 84484; 85025; 85610; 93005; 99282; 99283

== ENCOUNTER → 2023-04-25 08:53 | Outpatient (BNVA) | payer OTHER, SELFPAY | PROVIDERS: PCP Internal Medicine; Visit Provider Physician Assistant | DX: Z01.818 Encounter for other preprocedural examination (principal) | CPT/HCPCS: 99202 ==

== ENCOUNTER 2023-11-29 15:37 | Outpatient (AMB) | payer OTHER, SELFPAY ==
--- NOTE | 2023-11-29 15:51 | MHC.PC.OV ---
Vital Signs 11/29/23 15:52 Height 5 ft 8 in Weight 202 lb BMI 30.7 BP 112/70 Blood Pressure Location Lt brachial Position Sitting Intake Visit Reasons: PE Intake Note: Patient here for a physical exam Serials Librarian Required: No Accompanied by: Self / Same As Patient Allergies aspirin [ASPIRIN] Allergy (Unknown, Verified 11/29/23 16:13) SWOLLEN, swelling, swelling Medication List - Last Reconciled 11/29/23 by Sayra Maciel MD No Known Home Meds Tobacco use date assessed: 11/29/23 Dental Screening Dental Screen Date: 11/29/23 Did you have a dental visit in the last 12 months?: Yes Did you have a dental problem in the last 6 months where you did not have access to dental care?: No Was dental information given to patient?: Patient has dentist HPI HPI Comments History of Present Illness Details This is a 53-year-old male that comes for his physical exam. Has never had a colonoscopy and will be refer again. No chest pain or shortness of breath. No fever or cough. 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 1. Little interest or pleasure in doing things: not at all 2. Feeling down, depressed, or hopeless: not at all 3. Trouble falling or staying asleep, or sleeping too much: not at all 4. Feeling tired or having little energy: not at all 5. Poor appetite or overeating: not at all 6. Feeling bad about yourself - or that you are a failure or have let yourself or your family down: not at all 7. Trouble concentrating on things, such as reading the newspaper or watching television: not at all 8. Moving or speaking so slowly that other people could have noticed. Or the opposite - being so fidgety or restless that you have been moving around a lot more than usual: not at all 9. Thoughts that you would be better off or of hurting yourself in some way: not at all Total score: 0 Depression Screening Interpretation: Negative Depression Screening Done: Yes 47126 - PHQ-9 Billing: Yes Source: Developed by Drs. Chi Cash, Liliana Hernandez, Jose Jean and colleagues, with an educational jessica from [employer]. Thrive Questionnaire Date Thrive assessed: 11/29/23 I am a: Patient What is your living situation today?: I have a steady place to live Within the past 12 months, did the food you bought not last and you didn't have the money to get more?: Never true Within the past 12 months, did you worry whether your food would run out before you got money to buy more?: Never true Do you have trouble paying for medicines?: No Do you have trouble getting transportation to medical appointments?: No Do you have trouble paying your heating and electricity bill?: No Do you have trouble taking care of your child, family member or friend?: No Do you have trouble with day-to-day activities such as bathing, preparing meals, shopping, managing finances, etc.?: No Are you currently unemployed and looking for a job?: No Are you interested in more education?: No Please select the resources that you would like help with: None Currently or been in a relationship where the following occur: no concerns reported THRIVE Score: 0 AUDIT C Alcohol Use Questionnaire (AUDIT-C) 1. How often do you have a drink containing alcohol?: Monthly or less 2. How many drinks containing alcohol do you have on a typical day when you are drinking?: 1 or 2 3. How often do you have six or more drinks on one occasion?: Never Total Score: 1 Score Reviewed/Action Taken: No HORTENCIA-7 AMB Questionnaire HORTENCIA-7 Date HORTENCIA - 7 assessed: 11/29/23 Feeling nervous, anxious, or on edge: 0 = Not at all Not being able to stop or control worryin = Not at all Worrying too much about different things: 0 = Not at all Trouble relaxin = Not at all Being so restless that it is hard to sit still: 0 = Not at all Becoming easily annoyed or irritable: 0 = Not at all Feeling afraid as if something awful might happen: 0 = Not at all Total HORTENCIA-7 score (0-4 normal; 5-9 mild; 10-14 moderate; 15-21 severe): 0 Source: Developed by Drs. Chi Cash, Liliana Hernandez, Jose Jean and colleagues, with an educational jessica from [employer]. HORTENCIA-7 Assessment Billing HORTENCIA-7 Assessment Tool: HORTENCIA-7 Assessment 94294 Review of Systems Const All systems reviewed & are unremarkable except as noted in HPI and below Eyes Reports no additional complaints, Denies change in vision and Denies other visual disturbances Card Denies chest pain at rest, Denies chest pain with activity, Denies edema, Denies irregular heart rhythm, Denies claudication, Denies dyspnea, Denies dyspnea on exertion, Denies orthopnea, Denies paroxysmal nocturnal dyspnea and Denies slow heart rate Resp Denies cough, Denies dyspnea and Denies dyspnea on exertion GI Denies abdominal pain, Denies change in bowel habits, Denies excessive flatus, Denies nausea and Denies vomiting Denies urinary hesitancy, Denies urinary incontinence and Denies urinary urgency Musc Denies abnormal gait, Denies atrophy, Denies deformity and Denies limited range of motion Skin/Breast Denies bleeding lesions, Denies changing lesions and Denies rash Neuro Denies abnormal gait, Denies behavioral changes, Denies confusion and Denies lack of coordination Psych Denies behavioral changes and Denies confusion Physical exam (Primary Care) Vital Signs: Last Vital Signs BP 112/70 11/29/23 15:52 BMI result Body Mass Index 30.7 Tobacco/Smoking Status: Tobacco use Status Tobacco use date assessed 11/29/23 11/29/23 15:58 Patient Tobacco Use Status Former Tobacco user 11/29/23 15:58 Tobacco use type Cigarette 11/29/23 15:58 e-Cigarette/Vaping Use Never Used 11/29/23 15:58 PHQ-9: PHQ-9 Score PHQ-9: Total score 0 11/29/23 15:58 Depression Screening Interpretation: Negative Thrive Assessment: Date of Thrive Assessment Date Thrive assessed 11/29/23 11/29/23 15:58 Currently or been in a relationship where the following occur: no concerns reported Const General: No confusion Orientation/consciousness: patient oriented x3 and No confusion HENMT Head: Yes normal to inspection, Yes normocephalic and Yes atraumatic Ears: external ears normal Eyes General: appearance normal, both eyes and all related structures Eyelids: Yes eyelids normal Conjunctivae: conjunctivae normal Neck Neck: Yes normal visual inspection and Yes supple Resp Effort & Inspection: normal respiratory effort Auscultation: clear to auscultation bilaterally Cardio Jugular venous distension: no JVD Rate: regular rate Rhythm: regular rhythm Heart sounds: S1 normal heart sound present and S2 normal heart sound present GI Inspection: Yes normal to inspection Palpation (GI): Soft to palpation and nontender Auscultation: normal bowel sounds Skin General skin exam: no rashes or lesions noted Neuro General: patient oriented x3, no focal motor deficits and No confusion Extrem General: Yes full ROM Psych Appearance: grossly normal Assessment and Plan Assessment & Plan (1) Physical exam: Code(s): Z00.00 - Encounter for general adult medical examination without abnormal findings Plan: Repeat in a year. Orders: Orders Comprehensive [place]. Panel Fast Today Z00.00 - Encounter for general adult medical examination without abnormal findings Lipid Panel Today Z00.00 - Encounter for general adult medical examination without abnormal findings PSA,Total (Free>4and<10) Today Z12.5 - Encounter for screening for malignant neoplasm of prostate Referrals Open Access Screening Colonoscopy Referral Z12.11 - Encounter for screening for malignant neoplasm of colon Medications: New naproxen 500 mg PO BID 30 days PRN 60 tabs 0RF pain Coding Level of Care Code Est Pt Prev Care 40-64y(06986) Diagnoses Physical exam Z00.00 Additional Codes HORTENCIA-7 Assessment Billing - HORTENCIA-7 Assessment Tool: HORTENCIA-7 Assessment 84585 ([id number]) Time Spent (min) 31
[2023-11-29 15:52] VITALS: BP 112/70; BMI 30.7
== END 2023-11-29 16:21 | disposition home or self-care (01) ==
PROVIDERS: Visit Provider Internal Medicine
DX: Z00.00 Encounter for general adult medical examination without abnormal findings (principal)
CPT/HCPCS: 99396

== ENCOUNTER 2024-12-18 14:26 | Outpatient (AMB) | payer BC, OTHER, SELFPAY ==
--- NOTE | 2024-12-18 14:33 | MHC.PC.OV ---
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 Accompanied by: Self / Same As Patient Allergies aspirin [ASPIRIN] Allergy (Unknown, Verified 12/18/24 14:45) SWOLLEN, swelling, swelling Medication List - Last Reconciled 12/18/24 by Sayra Maciel MD naproxen 500 mg PO BID PRN 30 days Tobacco use date assessed: 12/18/24 Dental Screening Dental Screen Date: 12/18/24 Did you have a dental visit in the last 12 months?: Yes Did you have a dental problem in the last 6 months where you did not have access to dental care?: No Was dental information given to patient?: Patient has dentist HPI HPI Comments History of Present Illness Details The patient is a 54-year-old male presenting for his physical exam. The patient has not undergone a colonoscopy yet and requires scheduling for this screening procedure. In addition, the patient reports experiencing discomfort, possibly related to bone pain, in the mornings, though specific details regarding duration, severity, or precise location were not discussed during the visit. The patient uses naproxen as needed for pain management. There is no history of prior surgeries. The patient is allergic to aspirin, which causes swelling, and avoids its use. Declines flu vaccine today. Up-to-date with Tdap. 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 1. Little interest or pleasure in doing things: not at all 2. Feeling down, depressed, or hopeless: not at all 3. Trouble falling or staying asleep, or sleeping too much: not at all 4. Feeling tired or having little energy: not at all 5. Poor appetite or overeating: not at all 6. Feeling bad about yourself - or that you are a failure or have let yourself or your family down: not at all 7. Trouble concentrating on things, such as reading the newspaper or watching television: not at all 8. Moving or speaking so slowly that other people could have noticed. Or the opposite - being so fidgety or restless that you have been moving around a lot more than usual: not at all 9. Thoughts that you would be better off or of hurting yourself in some way: not at all Total score: 0 Depression Screening Interpretation: Negative Depression Screening Done: Yes 83523 - PHQ-9 Billing: Yes Source: Developed by Drs. Chi Cash, Liliana Hernandez, Jose Jean and colleagues, with an educational jessica from [employer]. Thrive Questionnaire Date Thrive assessed: 12/18/24 I am a: Patient What is your living situation today?: I have a steady place to live Within the past 12 months, did the food you bought not last and you didn't have the money to get more?: I choose not to answer this question Within the past 12 months, did you worry whether your food would run out before you got money to buy more?: Never true Do you have trouble paying for medicines?: No Do you have trouble getting transportation to medical appointments?: No Do you have trouble paying your heating and electricity bill?: No Do you have trouble taking care of your child, family member or friend?: No Do you have trouble with day-to-day activities such as bathing, preparing meals, shopping, managing finances, etc.?: No Are you currently unemployed and looking for a job?: No Are you interested in more education?: No Please select the resources that you would like help with: None Currently or been in a relationship where the following occur: No concerns reported THRIVE Score: 0 AUDIT C Alcohol Use Questionnaire (AUDIT-C) 1. How often do you have a drink containing alcohol?: Monthly or less 2. How many drinks containing alcohol do you have on a typical day when you are drinking?: 1 or 2 3. How often do you have six or more drinks on one occasion?: Never Total Score: 1 Score Reviewed/Action Taken: No HORTENCIA-7 AMB Questionnaire HORTENCIA-7 Date HORTENCIA - 7 assessed: 12/18/24 Feeling nervous, anxious, or on edge: 0 = Not at all Not being able to stop or control worryin = Not at all Worrying too much about different things: 0 = Not at all Trouble relaxin = Not at all Being so restless that it is hard to sit still: 0 = Not at all Becoming easily annoyed or irritable: 0 = Not at all Feeling afraid as if something awful might happen: 0 = Not at all Total HORTENCIA-7 score (0-4 normal; 5-9 mild; 10-14 moderate; 15-21 severe): 0 Source: Developed by Drs. Chi Cash, Liliana Hernandez, Jose Jean and colleagues, with an educational jessica from [employer]. HORTENCIA-7 Assessment Billing HORTENCIA-7 Assessment Tool: HORTENCIA-7 Assessment 78176 Review of Systems Const All systems reviewed & are unremarkable except as noted in HPI and below Card Denies chest pain at rest, Denies chest pain with activity, Denies edema, Denies irregular heart rhythm, Denies claudication, Denies dyspnea, Denies dyspnea on exertion, Denies orthopnea, Denies paroxysmal nocturnal dyspnea and Denies slow heart rate Resp Denies cough, Denies dyspnea and Denies dyspnea on exertion GI Denies abdominal pain, Denies change in bowel habits, Denies excessive flatus, Denies nausea and Denies vomiting Denies urinary hesitancy, Denies urinary incontinence and Denies urinary urgency Musc Denies abnormal gait, Reports back pain, Denies atrophy, Denies deformity, Reports arthralgias, Denies limited range of motion and Reports numbness Neuro Denies abnormal gait, Denies lack of coordination and Reports numbness Physical exam (Primary Care) Vital Signs: Last Vital Signs BP 120/80 12/18/24 14:37 BMI result Body Mass Index 31.9 BMI Assessment/Plan discussion: High BMI High, discussed plan: lifestyle, weight reduction, dietary and physical activity Tobacco/Smoking Status: Tobacco use Status Tobacco use date assessed 12/18/24 12/18/24 14:42 Patient Tobacco Use Status Former Tobacco user 12/18/24 14:35 Tobacco use type Cigarette 12/18/24 14:35 e-Cigarette/Vaping Use Never Used 12/18/24 14:35 PHQ-9: PHQ-9 Score PHQ-9: Total score 0 12/18/24 14:42 Depression Screening Interpretation: Negative Thrive Assessment: Date of Thrive Assessment Date Thrive assessed 12/18/24 12/18/24 14:35 Currently or been in a relationship where the following occur: No concerns reported HENMT Head: Yes normal to inspection, Yes normocephalic and Yes atraumatic Ears: external ears normal Eyes General: appearance normal, both eyes and all related structures Eyelids: Yes eyelids normal Conjunctivae: conjunctivae normal Neck Neck: Yes normal visual inspection and Yes supple Resp Effort & Inspection: normal respiratory effort Auscultation: clear to auscultation bilaterally Cardio Jugular venous distension: no JVD Rate: regular rate Rhythm: regular rhythm Heart sounds: S1 normal heart sound present and S2 normal heart sound present GI Inspection: Yes normal to inspection Palpation (GI): Soft to palpation and nontender Auscultation: normal bowel sounds Skin General skin exam: no rashes or lesions noted Neuro General: no focal motor deficits Extrem General: Yes full ROM Psych Appearance: grossly normal Office Procedures Flu Questionnaire Does the patient have a severe egg allergy?: No Immunizations Fluarix Triv [id number] (PF) 45 mcg (15 mcg x 3)/0.5 mL IM syringe Performing Provider: Sayra Maciel MD Per[facility] [place] [facility] Documented (not given) by: EMILY Cade on 12/18/24 14:42 Reason Not Given: Patient Refused Coding Level of Care Code Est Pt Level 4 (62145) Est Pt Prev Care 40-64y(30284) Diagnoses Physical exam Z00.00 Paresthesia of arm R20.2 Right elbow pain M25.521 Chronic right shoulder pain M25.511; G89.29 Chronicity: chronic Left wrist pain M25.532 Right wrist pain M25.531 Polyarthralgia M25.50 Additional Codes PHQ-9 - 56990 - PHQ-9 Billing: Yes ([id number]) HORTENCIA-7 Assessment Billing - HORTENCIA-7 Assessment Tool: HORTENCIA-7 Assessment 65537 ([id number]) Time Spent (min) 34 Assessment & Plan Assessment & Plan (1) Physical exam: Code(s): Z00.00 - Encounter for general adult medical examination without abnormal findings Category: Medical (2) Paresthesia of arm: Code(s): R20.2 - Paresthesia of skin Category: Medical (3) Right elbow pain: Code(s): M25.521 - Pain in right elbow Category: Medical (4) Right shoulder pain: Code(s): M25.511 - Pain in right shoulder Category: Medical Qualifiers: Chronicity: chronic Qualified Code(s): M25.511 - Pain in right shoulder; G89.29 - Other chronic pain (5) Left wrist pain: Code(s): M25.532 - Pain in left wrist Category: Medical (6) Right wrist pain: Code(s): M25.531 - Pain in right wrist Category: Medical (7) Polyarthralgia: Code(s): M25.50 - Pain in unspecified joint Category: Medical Plan - Coordinate scheduling of a routine colonoscopy. - Recommend consultation with a global marketing manager for assessment and management of possible bone pain. - Continue use of naproxen as needed for pain management, avoiding aspirin due to an allergy. - Monitor and discuss any changes in symptoms or discomfort. Patient was informed and verbally consented to the use of an ambient scribe for clinic note documentation during this visit. I discussed with the patient the need for a routine colonoscopy, given his age and the importance of this screening procedure. We will schedule the colonoscopy at the earliest convenience. For the management of the reported bone pain, I advised a global marketing manager consultation to explore potential underlying causes and appropriate management strategies. We reviewed the use of naproxen for pain relief and the necessity to avoid aspirin due to an allergy. The patient was advised to report any worsening symptoms or new symptoms that may arise. Orders: Orders Influenza [id number] Immunization Today Z23 - Encounter for immunization XR shoulder RT min 2V Today M25.511 - Pain in right shoulder Comprehensive [place]. Panel Fast Today Z00.00 - Encounter for general adult medical examination without abnormal findings Cyclic Citrullinated Peptide Today M25.50 - Pain in unspecified joint Erythrocyte Sedimentation Rate Today M25.50 - Pain in unspecified joint SAYRA Reflex Titer and Pattern Today M25.50 - Pain in unspecified joint Complete Blood Count Auto Diff Today M25.50 - Pain in unspecified joint NE nerve conduction velocity Today R20.2 - Paresthesia of skin XR wrist LT 2V Today M25.532 - Pain in left wrist XR wrist RT 2V Today M25.531 - Pain in right wrist XR elbow RT 2V Today M25.521 - Pain in right elbow Lipid Panel Today Z00.00 - Encounter for general adult medical examination without abnormal findings Vitamin B12 and Folate Today E53.8 - Deficiency of other specified B group vitamins, R20.2 - Paresthesia of skin Vitamin D 25-OH Total Today E55.9 - Vitamin D deficiency, unspecified, M25.50 - Pain in unspecified joint CRP High Sensitivity Today M25.50 - Pain in unspecified joint Anti DNA DS Antibody Today M25.50 - Pain in unspecified joint Referrals Open Access Screening Colonoscopy Referral Z12.11 - Encounter for screening for malignant neoplasm of colon, Z12.12 - Encounter for screening for malignant neoplasm of rectum Rheumatology Referral M25.50 - Pain in unspecified joint Patient Instructions: - Schedule and attend the routine colonoscopy as directed. - Consult with a global marketing manager regarding bone pain management. - Use naproxen as needed for pain and avoid aspirin products. - Report any increase in pain or new symptoms to me.
[2024-12-18 14:37] VITALS: BP 120/80; BMI 31.9
== END 2024-12-18 14:56 | disposition home or self-care (01) ==
PROVIDERS: PCP Internal Medicine; Visit Provider Internal Medicine
DX: Z00.00 Encounter for general adult medical examination without abnormal findings (principal); R20.2 Paresthesia of skin; M25.521 Pain in right elbow; M25.511 Pain in right shoulder; G89.29 Other chronic pain; M25.532 Pain in left wrist; M25.531 Pain in right wrist; M25.50 Pain in unspecified joint; Z23 Encounter for immunization

== ENCOUNTER → 2024-12-18 14:26 | Outpatient (BNVA) | payer BC, OTHER, SELFPAY | PROVIDERS: PCP Internal Medicine; Visit Provider Internal Medicine | DX: Z00.00 Encounter for general adult medical examination without abnormal findings (principal); R20.2 Paresthesia of skin; M25.521 Pain in right elbow; M25.511 Pain in right shoulder; G89.29 Other chronic pain; M25.532 Pain in left wrist; M25.531 Pain in right wrist; M25.50 Pain in unspecified joint; Z28.21 Immunization not carried out because of patient refusal | CPT/HCPCS: 96127 ==

== ENCOUNTER 2025-01-08 10:12 | Outpatient (REF) | payer BC, SELFPAY ==
--- NOTE | 2025-01-08 10:15 | EMG_ITS ---
FINDINGS: Bilateral median and ulnar motor and sensory studies were performed. Bilateral radial sensory studies were performed. Bilateral median and lateral antecubital brachial sensory studies were performed and paraspinal muscles were tested with a needle. IMPRESSION: 1. Mild bilateral ulnar neuropathy across cubital tunnel. 2. Mild right median neuropathy across carpal tunnel. MD HASEEB Nunez/RAJANI / [id number]
== END 2025-01-08 10:13 | disposition home or self-care (01) ==
LOC: HO.NEURO 10:12
PROVIDERS: PCP Internal Medicine; Visit Provider Internal Medicine
DX: R20.2 Paresthesia of skin (principal)
CPT/HCPCS: 95886; 95913

== ENCOUNTER 2025-02-18 07:59 | Outpatient (REF) | payer BC, SELFPAY ==
--- NOTE | ~2025-02-18 | XR_ITS ---
EXAMINATION: XR WRIST, LEFT CLINICAL INFORMATION: M25.532 - Pain in left wrist COMPARISON: None available. TECHNIQUE: PA, lateral, and oblique views of the left wrist. FINDINGS: No fracture, dislocation, or suspicious bone lesion. Normal bone mineralization. Normal alignment. Joint spaces are preserved. No erosions or significant arthropathy. No significant joint effusion. Soft tissues appear normal aside from vascular calcifications. XR/XR wrist LT 2V IMPRESSION: 1. No acute bony abnormalities. 2. Diffuse vascular calcifications in the soft tissues. Electronically signed by: Gerardo Polanco MD 02/19/2025 02:32 PM EDT
--- NOTE | ~2025-02-18 | XR_ITS ---
EXAMINATION: XR ELBOW, RIGHT CLINICAL INFORMATION: M25.521 - Pain in right elbow COMPARISON: None available. TECHNIQUE: AP, lateral, and oblique views of the right elbow. FINDINGS: No fracture, dislocation, or suspicious bone lesion. Normal bone mineralization. Normal alignment. Joint spaces are preserved. Mild spurring of the coronoid process. Mild spurring of the medial and lateral epicondyles. No significant joint effusion. Soft tissues appear normal. XR/XR elbow RT 2V IMPRESSION: 1. No acute bony abnormalities. No joint effusion. 2. 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 3. Minimal spurring of the epicondyles. Electronically signed by: Gerardo Polanco MD 02/19/2025 02:25 PM EDT
--- NOTE | ~2025-02-18 | XR_ITS ---
EXAMINATION: XR SHOULDER, RIGHT CLINICAL INFORMATION: M25.511 - Pain in right shoulder COMPARISON: None available. TECHNIQUE: AP external rotation, Grashey, scapular Y, and axillary views of the right shoulder. FINDINGS: No acute cortical disruption or malalignment. No lytic or blastic lesions. Mild sclerosis at the articular surface of the greater tuberosity. XR/XR shoulder RT min 2V IMPRESSION: Mild osteoarthrosis. Electronically signed by: Buddy Hernandez MD 02/19/2025 02:25 PM EDT
--- NOTE | ~2025-02-18 | XR_ITS ---
EXAMINATION: XR WRIST, RIGHT CLINICAL INFORMATION: M25.531 - Pain in right wrist COMPARISON: None available. TECHNIQUE: PA, lateral, and oblique views of the right wrist. FINDINGS: No fracture, dislocation, or suspicious bone lesion. Normal bone mineralization. Normal alignment. Joint spaces are preserved. No erosions or significant arthropathy. No significant joint effusion. Soft tissues appear normal aside from vascular calcifications. XR/XR wrist RT 2V IMPRESSION: 1. No acute bony abnormalities. 2. Diffuse vascular calcifications in the soft tissues. Electronically signed by: Gerardo Polanco MD 02/19/2025 02:31 PM EDT
[2025-02-18 08:14] LABS: MANUAL DIFF FLAG NO
[2025-02-18 08:25] LABS: Basophils Percent Auto 0.6 % (0-2); Eosinophils Absolute Auto 0.1 X10*3/uL (0.0-0.4); Eosinophils Percent Auto 2.1 % (0-4); Hematocrit 46.5 % (42.0-52.0); Hemoglobin 15.9 g/dl (14.0-18.0); Imm Gran Abs Auto 0.03 X10*3/uL (0.00-0.03); Imm Gran Pct Auto 0.5 % (0.0-0.4); Lymphocytes Percent Auto 31.8 % (20-40); Mean Corpuscular HGB Conc 34.2 g/dl (31.0-36.0); Mean Corpuscular Hemoglobin 31.1 pg (27.0-33.0); Mean Platelet Volume 9.5 fL (9.4-12.4); Monocytes Absolute Auto 0.6 X10*3/uL (0.1-1.2); Monocytes Percent Auto 9.1 % (2-11); Neutrophils Absolute Auto 3.4 x10*3/uL (2.0-8.3); Neutrophils Percent Auto 55.9 % (45-73); Platelet Count 166 X10*3/uL (160-400); Red Blood Count 5.11 X10*6/uL (4.60-5.80); Red Cell Distribution Width 12.7 % (11.0-16.0); White Blood Count 6.2 X10*3/uL (4.8-10.8)
[2025-02-18 09:12] LABS: Alanine Aminotransferase 42 U/L (0-40); Alkaline Phosphatase 59 U/L (39-117); Anion Gap 11 (12-20); Aspartate Amino Transferase 27 U/L (5-37); Bilirubin Total 0.3 mg/dL (0.0-1.0); Blood Urea Nitrogen 13 mg/dL (9-16); Calcium 8.8 mg/dL (8.4-10.2); Carbon Dioxide 28 mmol/L (22-29); Chloride 106 mmol/L (96-108); Cholesterol 178 mg/dL (<200); Estimated Glomerular Filt Rate > 60; Glucose Fasting 117 mg/dL (60-99); HDL Cholesterol 46 mg/dL (>40); LDL Cholesterol Calculated 97 mg/dL (<100); Potassium 4.7 mmol/L (3.3-5.1); Sodium 140 mmol/L (135-145); Total Protein 7.2 g/dL (6.5-8.0); Triglycerides 178 mg/dL (<150)
[2025-02-18 09:14] LABS: Erythrocyte Sedimentation Rate 2 MM/HR (0-15)
[2025-02-18 09:28] LABS: Vitamin D 25-OH Total 12.7 ng/mL (>30)
[2025-02-18 09:32] LABS: Vitamin B12 609 pg/mL (200-900)
[2025-02-19 05:18] LABS: CRP High Sensitivity 3.1 mg/L
[2025-02-19 19:27] LABS: Cyclic Citrullinated Peptide <16 UNITS
[2025-02-19 22:48] LABS: Anti DNA DS Antibody <1 IU/mL
[2025-02-21 12:24] LABS: Anti Nuclear Antibody Pattern Nuclear, Homogeneous; Anti Nuclear Antibody Screen POSITIVE (NEGATIVE); Anti Nuclear Antibody Titer 1:40 titer
== END 2025-02-18 08:00 | disposition home or self-care (01) ==
LOC: HO.LAB 07:59
PROVIDERS: PCP Internal Medicine; Visit Provider Internal Medicine
DX: M25.521 Pain in right elbow (principal); Z00.00 Encounter for general adult medical examination without abnormal findings; M25.50 Pain in unspecified joint; E53.8 Deficiency of other specified B group vitamins; R20.2 Paresthesia of skin; E55.9 Vitamin D deficiency, unspecified; M25.511 Pain in right shoulder; M25.531 Pain in right wrist; M25.532 Pain in left wrist; Z13.6 Encounter for screening for cardiovascular disorders
CPT/HCPCS: 36415; 73030; 73070; 73100; 80053; 80061; 82306; 82607; 82746; 85025; 85652; 86038; 86039; 86141; 86200; 86225

== ENCOUNTER → 2025-02-18 08:14 | Outpatient (BNV) | payer BC, SELFPAY | PROVIDERS: PCP Internal Medicine; Visit Provider Radiology Diagnostic Radiology | DX: M25.511 Pain in right shoulder (principal); M25.532 Pain in left wrist; M25.531 Pain in right wrist; M25.521 Pain in right elbow | CPT/HCPCS: 73030; 73070; 73100 ==

== ENCOUNTER 2025-04-03 15:34 | Emergency (ER) | payer BC, SELFPAY ==
--- NOTE | ~2025-04-03 | XR_ITS ---
EXAMINATION: XR CHEST CLINICAL INFORMATION: cough COMPARISON: March 21, 2023 TECHNIQUE: 2 views of the chest were obtained. FINDINGS: Lungs are clear and well aerated. No pneumothorax is identified. Heart and mediastinal contours are within normal limits. No pleural effusion is evident. No interval change XR/XR chest 2V IMPRESSION: No acute disease. Electronically signed by: Alejo Coles MD 04/03/2025 04:11 PM EDT
[2025-04-03 15:48] VITALS: BP 129/78; PULSE 68; RESP 18; TEMP 36.3; O2SAT 97; BMI 31.1
--- NOTE | 2025-04-03 15:48 | ED_ITS ---
HPI - General Adult General Chief complaint: Upper Respiratory Symptoms Stated complaint: Cough Time Seen by Provider: 04/03/25 18:02 Source: patient Limitations: no limitations History of Present Illness ED Provider: Morena Osullivan PA-C HPI narrative: 54-year-old male presents with cough and cold symptoms x2 weeks. Patient states he has had a dry repetitive cough for weeks, it acutely worsened overnight. Alessandra leiva has been trying uewd-vlh-[id number] remedies without relief from his symptoms. Denies history of asthma, COPD, tobacco use, fever or sick contacts with similar symptoms. Patient states seasonal allergies do affect him. Related Data Previous Rx's ?Medication ?Instructions ?Recorded naproxen 500 mg tablet 500 mg PO BID PRN pain 30 days #60 09/28/24 tabs cholecalciferol (vitamin D3) 50 50 mcg PO DAILY 90 days #90 caps 02/18/25 mcg (2,000 unit) capsule albuterol sulfate 90 mcg/actuation 2 puff inhalation Q4-6H PRN 04/03/25 aerosol inhaler shortness of breath or wheezing #6.7 grams prednisone 20 mg tablet 40 mg (2 x 20 mg) PO DAILY #8 tabs 04/03/25 Allergies Allergy/AdvReac Type Severity Reaction Status Date / Time aspirin [ASPIRIN] Allergy Unknown SWOLLEN, Verified 04/03/25 15:50 swelling, swelling Review of Systems Review of Systems: Yes all other systems are reviewed and are negative Constitutional: Constitutional: Denies fatigue and Denies fever(s) Cardiovascular: Cardiovascular: Denies chest pain and Reports dyspnea Respiratory: Respiratory: Denies chest congestion, Reports cough, Reports dyspnea and Reports wheezing Gastrointestinal: Gastrointestinal: Denies abdominal pain, Denies nausea and Denies vomiting Endocrine: Endocrine: Denies fatigue Allergic/Immunologic: Allergic/Immunologic: Reports wheezing PMFSH Past Medical History Attestation statement: The following information was validated with the patient. 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 Current occupational exposures/hazards: No Cognitive needs: No Hearing needs: No Vision needs: Yes Physical Exam ED Vital Signs: Vital Signs - 24 hr 04/03/25 15:48 04/03/25 19:39 04/03/25 20:49 Temperature 97.4 F 98.9 F Pulse Rate 68 71 69 Respiratory Rate 18 18 16 Blood Pressure 129/78 125/86 Pulse Oximetry 97 97 Oxygen Delivery Method Room Air Room Air BMI result Body Mass Index 31.1 Const Other: Alert well-appearing Orientation/consciousness: patient oriented x3 Resp Other: Expiratory wheezes noted posterior osman, bronchospasm type cough nonlabored respiration Cardio Other: Normal peripheral perfusion Skin Other: Warm dry no rash Neuro General: patient oriented x3, gait normal, no focal motor deficits and CN's II- XI intact bilaterally Psych Other: Calm cooperative Course Course Course Narrative: 04/03/25 1549 SHANA Baker This is a Rapid Medical Examination (RME) performed by Jojo Damon PA-C in triage. Full HPI, ROS, assessment and treatment plan per primary provider in the Main ED. Hx: 54 yo M here w/ dry cough x 2-3 weeks. taking cough medicine w/o relief. chest discomfort on coughing only. no hx asthma. no tobacco use. no recent travel/long car rides. no know sick contacts Plan: viral swabs, cxr Medications Administered Discontinued Medications Generic Name Dose Route Start Last Admin Trade Name Freq PRN Reason Stop Dose Admin Albuterol/Ipratropium 3 ml 04/03/25 19:35 04/03/25 19:37 Albuterol/Iprat 2.5/0.5mg 3 Ml Ampul.Neb INHALE 04/03/25 19:36 3 ml ONCE ONE Administration Magnesium Sulfate 2 gm in 50 mls @ 25 mls/hr 04/03/25 19:27 04/03/25 20:16 Magnesium Sulfate/H2o IV 04/03/25 21:26 Infused ONCE ONE Infusion Prednisone 40 mg 04/03/25 19:27 04/03/25 19:57 Prednisone 20 Mg Tablet PO 04/03/25 19:28 40 mg ONCE ONE Administration Medical Decision Making Medical Decision Making [facility] Narrative: 54-year-old male presents with cough and cold symptoms x2 weeks. Patient states he has had a dry repetitive cough for weeks, it acutely worsened overnight. Patient has been trying dyqj-ekv-ykwnuqk remedies without relief from his symptoms. Denies history of asthma, COPD, tobacco use, fever or sick contacts with similar symptoms. Patient states seasonal allergies do affect him. No known chronic issues History: Per patient I have considered the following differential diagnoses: Reactive airway, bronchitis, pneumonia, viral syndrome, seasonal allergies Plan: Viral panel and chest x-ray were ordered from triage, we will be ordering an updraft for the patient was steroid. He does not use tobacco, he does not require antibiotic. I suspect seasonal allergies are triggering his current symptoms. I have independently reviewed the following tests: Labs: Viral panel negative CXR: FINDINGS: Lungs are clear and well aerated. No pneumothorax is identified. Heart and mediastinal contours are within normal limits. No pleural effusion is evident. No interval change XR/XR chest 2V IMPRESSION: No acute disease. Lab Data Labs: Lab Results 04/03/25 Range/Units 17:45 Influenza Type A (PCR) NEGATIVE (Negative) Influenza Type B (PCR) NEGATIVE (Negative) RSV RNA Qual (PCR) NEGATIVE (Negative) SARS-CoV-2 RNA (RT-PCR) NEGATIVE (Negative) Discharge Plan Discharge Clinical Impression: Asthma exacerbation Patient Disposition: Home, Self-Care Instructions: Asthma (ED) Additional Instructions: You are being treated for an asthma exacerbation. See home care instructions. The chest x-ray was clear there was no pneumonia. You were tested for influenza RSV and COVID, the viral panel was negative. Use your inhaler as needed for cough and wheezing. Take the steroid as directed. Follow up with your primary care provider as needed Prescriptions: New prednisone 20 mg tablet 40 mg PO DAILY Qty: 8 0RF albuterol sulfate 90 mcg/actuation HFA aerosol inhaler 2 puff inhalation Q4-6H PRN (Reason: shortness of breath or wheezing) Qty: 6.7 0RF No Action naproxen 500 mg tablet 500 mg PO BID PRN (Reason: pain) 30 Days Qty: 60 0RF cholecalciferol (vitamin D3) 50 mcg (2,000 unit) capsule 50 mcg PO DAILY 90 Days Qty: 90 3RF Stand Alone Forms: Work/School Release Discharge Date/Time: 04/03/25 21:59 Print Language: Indian
[2025-04-03 19:05] LABS: Influenza A PCR NEGATIVE (Negative); Influenza B PCR NEGATIVE (Negative); Resp Syncy Virus RNA Qual PCR NEGATIVE (Negative); SARS COV2 PCR INHOUSE NEGATIVE (Negative)
--- NOTE | 2025-04-03 19:27 | PC.NURSE ---
SHANA Osullivan to bedside for eval. Plan to insert IV, administer Magnesium over 20 minutes, and initiate bronchodilator protocol. Eder (RT) contacted. Patient is in Results Pending room in ED.
[2025-04-03] MEDS: Albuterol/Iprat 2.5/0.5MG 3 ML AMPUL.NEB INHALE (19:37)
[2025-04-03 19:39] VITALS: PULSE 71; RESP 18; O2SAT 93
[2025-04-03] MEDS: Magnesium Sulfate/H2O 2 GM/50 ML PIGGYBACK IV (19:56)
[2025-04-03] MEDS: predniSONE 20 MG TABLET 40 MG PO (19:57)
[2025-04-03 20:49] VITALS: BP 125/86; PULSE 69; RESP 16; TEMP 37.2; O2SAT 97
== END 2025-04-03 21:59 | disposition home or self-care (01) ==
PROVIDERS: Physician Assistant Medical; Emergency Provider Emergency Medicine; PCP Internal Medicine
DX: J45.901 Unspecified asthma with (acute) exacerbation (principal); R05.9 Cough, unspecified; Z03.818 Encounter for observation for suspected exposure to other biological agents ruled out
CPT/HCPCS: 0241U; 71046; 94640; 96365; 99284; J3475

== ENCOUNTER → 2025-04-03 15:49 | Outpatient (BNV) | payer BC, SELFPAY | PROVIDERS: PCP Internal Medicine; Visit Provider Radiology Diagnostic Radiology | DX: R05.9 Cough, unspecified (principal) | CPT/HCPCS: 71046 ==

== ENCOUNTER 2025-07-24 10:53 | Outpatient (AMB) | payer BC, SELFPAY ==
--- NOTE | 2025-07-24 11:04 | MHC.OFFVIS ---
Vital Signs 07/24/25 11:16 Height 5 ft 9 in Weight 216 lb 0.848 oz BMI 31.9 BP 130/72 Blood Pressure Location Rt brachial Position Sitting Pulse 58 Pulse Source Pulse Oximeter Pulse Oximetry (%) 95 Oxygen Delivery Method Room Air Intake Visit Reasons: joint pain/New Patient Intake Note: New patient presents for joint pain. Patient c/o Rt shoulder pain, bilateral elbow pain, bilateral wrist pain, bilateral hand pain, Lt hip pain, RT knee pain, bilateral ankle pain and bilateral feet pain. Patient stated he had these syptomps for one year. Patient takes Naproxen for pain. Hospital Receptionist Required: Yes Hospital Receptionist Language: Correspondence Coordinator Services: Hospital Receptionist Present Information Interpreted: non-clinical & clinical Allergies aspirin (ASPIRIN) Allergy (Unknown, Verified 07/24/25 11:13) SWOLLEN, swelling, swelling Medication List - Last Reconciled 07/24/25 by Savanna Brown MD albuterol sulfate 90 mcg/actuation 2 puffs inhalation Q4-6H PRN cholecalciferol (vitamin D3) 50 mcg PO DAILY 90 days HPI Comments Details: Patient is a 54-year-old male with newly diagnosed asthma here today for evaluation of polyarticular joint pain Patient notes that 2 years ago he started having pain in feet and ankles which prevented him from running and playing sports Over time the joint pain started to involve the knees, elbows and fingers Worse in the AM when he wakes up he feels stiff lasting for 2-3 hours No swelling noted Fingers change color in the cold to purple Denies rashes, photosensitivity, alopecia, oral/nasal ulcers, sicca symptoms, lymphadenopathy, chest pain/shortness of breath, foamy urine, lower extremity edema, muscle weakness Also denies history of seizure, CVA, psychosis, history of kidney problems, history of cytopenias, history of VTE including PE or DVTs Family History: Mom with hx of osteoarthritis PFSH Surgical History No pertinent past surgical history Family History Mother Hypertension History of heart attack Bone cancer Father Diabetes Social History Housing: House Alcohol intake: current Alcohol intake frequency: holidays/special occasions only Alcohol type: beer, wine and hard liquor Patient Tobacco Use Status: Former Tobacco user Tobacco use type: Cigarette e-Cigarette/Vaping Use: Never Used Second Hand Smoke Exposure: No service: No Current occupational status: employed 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 Current occupational exposures/hazards: No Cognitive needs: No Hearing needs: No Vision needs: Yes Review of Systems Const Details: Review of Systems Constitutional: Denies fever, chills, weight loss ENT: Denies vision changes, eye pain or eye redness, dental caries, dry mouth GI: Denies nausea, vomiting, diarrhea, abdominal pain, change in BM Pulm: Denies SOB, ESTES, hemoptysis, wheezing Cards: Denies chest pain, palpitations Skin: Denies rash, nail changes, photosensitivity, WET MIX OPERATOR: Denies headaches, weakness, paresthesias, recurrent falls MSK: as per HPI All other systems reviewed and are unremarkable except noted above Physical Exam Exam Exam: Vital signs reviewed Physical Examination CONSTITUITIONAL Patient alert and cooperative. Well appearing and in no apparent painful distress MSK Hands Right Hand: Able to make a fist. No swelling. TTP of all the PIPs and the 2nd MCP. Also TTP of the 4th and 5th DIP Left Hand: Able to make a fist. No swelling. TTP of all the PIPs and the 2nd MCP. Also TTP of the 4th and 5th DIP Wrists Right Wrist: Full ROM to flexion and extension. No swelling or TTP Left Wrist: Full ROM to flexion and extension. No swelling or TTP Elbows Right Elbow: Full ROM. No swelling or TTP. No TTP of the medial epicondyle. TTP of the lateral epicondyle Left Elbow: Full ROM. No swelling but TTP of the elbow joint No TTP of the medial epicondyle. No TTP of the lateral epicondyle Shoulders Right shoulder: Full ROM. No swelling noted. No TTP of the AC joint. No TTP of the subacromial bursa. No TTP of the posterior shoulder Left shoulder: Full ROM. No swelling noted. No TTP of the AC joint. No TTP of the subacromial bursa. No TTP of the posterior shoulder Hip bursa: No tenderness to palpation bilaterally Knees Right knee: Full ROM. No swelling noted. TTP of the knee joint line. No TTP of pes anserine bursa Left knee: Full ROM. No swelling noted. TTP of the knee joint line. No TTP of pes anserine bursa. Ankles Right ankle: Good ankle dorsiflexion and plantar flexion. No swelling. No TTP of the ankle joint. Achilles insertion TTP Left ankle: Good ankle dorsiflexion and plantar flexion. No swelling. No TTP of the ankle joint Feet Right foot: TTP of the 5th MTP Left foot: Negative squeeze test Tender points? No tenderness to palpation of the bilateral trapezius, supraspinatus, anterior costochondral junctions, bilateral suboccipital muscle insertions SKIN No rashes Vital Signs: Last Vital Signs Pulse 58 07/24/25 11:16 BP 130/72 07/24/25 11:16 Pulse Ox 95 07/24/25 11:16 Oxygen Delivery Method Room Air 07/24/25 11:16 BMI result Body Mass Index 31.9 Results Reviewed Results Reviewed: Laboratory Tests 02/18/25 08:12 WBC 6.2 RBC 5.11 Hgb 15.9 Hct 46.5 Plt Count 166 ESR 2 Sodium 140 Potassium 4.7 Chloride 106 Carbon Dioxide 28 BUN 13 Creatinine 0.88 AST 27 ALT 42 H 25-OH Vitamin D Total 12.7 L Laboratory Tests 02/18/25 08:12 Cycl Citrul Peptide IgG <16 ROVERTO Screen POSITIVE A ROVERTO Titer 1:40 H XR Wrist 01/2025 FINDINGS: No fracture, dislocation, or suspicious bone lesion. Normal bone mineralization. Normal alignment. Joint spaces are preserved. No erosions or significant arthropathy. No significant joint effusion. Soft tissues appear normal aside from vascular calcifications. IMPRESSION: 1. No acute bony abnormalities. 2. Diffuse vascular calcifications in the soft tissues. Assessment & Plan Assessment & Plan (1) Polyarthralgia: Code(s): M25.50 - Pain in unspecified joint Category: Medical Plan: #Polyarthralgia Patient is a 54-year-old male here today to establish care for evaluation of polyarthralgias. His history is consistent with an inflammatory arthritis with prolonged morning stiffness and involvement of the hands, wrists, feet and ankles. Even his exam he did have some tenderness to palpation of the MCPs and PIPs. No psoriatic rashes noted on exam and no obvious nail pitting or onycholysis on exam. However given that he does have some evidence of synovitis I think it is worth doing a trial of mild immunosuppression with Plaquenil Plan - Check labs: CBC, CMP, ESR, CRP, RF, HLA B27 - Check XRs: Hands, feet, ankles and knees - Hydroxychloroquine 200mg bid - RTC 4 months (2) Encounter for monitoring of hydroxychloroquine therapy: Code(s): Z51.81 - Encounter for therapeutic drug level monitoring; Z79.899 - Other nursing home (current) drug therapy Plan: #Long-term Use of Hydroxychloroquine Discussed with patient the risks and benefits of hydroxychloroquine in managing the rheumatic condition Benefits include: - Reduced pain, reduce mortality, maintenance of remission and reduction of flares Risks include: - GI upset, skin hyperpigmentation, retinal toxicity (especially after more than 5 years of use), myopathy Advised yearly ophthalmology visits Plan I spent 45 minutes reviewing the record and labs, taking a history, examining the patient, discussing the treatment plan, ordering diagnostic work up, writing letter for work and documenting in the medical record Orders: Orders Complete Blood Count Auto Diff Today M25.50 - Pain in unspecified joint Vitamin D 25-OH Total Today M25.50 - Pain in unspecified joint, Z79.899 - Other 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 Panel Today M25.50 - Pain in unspecified joint C Reactive Protein Today M25.50 - Pain in unspecified joint Erythrocyte Sedimentation Rate Today M25.50 - Pain in unspecified joint Rheumatoid Factor Today M25.50 - Pain in unspecified joint HLA B27 Today M25.50 - Pain in unspecified joint XR hand RT min 3V Today M25.50 - Pain in unspecified joint XR knee RT 3V Today M25.50 - Pain in unspecified joint XR foot LT min 3V Today M25.50 - Pain in unspecified joint XR ankle RT min 3V Today M25.50 - Pain in unspecified joint Medications: New hydroxychloroquine (Plaquenil) 200 mg PO BID 180 tabs 1RF M19.90 - Unspecified osteoarthritis, unspecified site Discontinued prednisone Discontinued Reason: Patient Completed Course 40 mg (2 x 20 mg) PO DAILY 8 tabs 0RF naproxen Discontinued Reason: Patient no longer taking 500 mg PO BID 30 days PRN 60 tabs 0RF pain Coding Level of Care Code New Pt Level 4 (89305) Complex EM visit Add On G2211 Diagnoses Polyarthralgia M25.50 Encounter for monitoring of hydroxychloroquine therapy Z51.81; Z79.899
[2025-07-24 11:16] VITALS: BP 130/72; PULSE 58; O2SAT 95; BMI 31.9
== END 2025-07-24 11:48 | disposition home or self-care (01) ==
LOC: HO.RHES 10:55
PROVIDERS: PCP Internal Medicine; Visit Provider Student in an Organized Health Care Education/Training Program
DX: M25.50 Pain in unspecified joint (principal); Z51.81 Encounter for therapeutic drug level monitoring; Z79.899 Other long term (current) drug therapy
CPT/HCPCS: 99204

== ENCOUNTER 2025-07-24 10:53 | Outpatient (REF) | payer BC, SELFPAY ==
[2025-07-24 18:13] LABS: MANUAL DIFF FLAG NO
[2025-07-24 18:30] LABS: Hematocrit 47.4 % (42.0-52.0); Hemoglobin 15.8 g/dl (14.0-18.0); Imm Gran Abs Auto 0.01 X10*3/uL (0.00-0.03); Imm Gran Pct Auto 0.2 % (0.0-0.4); Lymphocytes Absolute Auto 2.1 X10*3/uL (1.2-4.9); Mean Corpuscular HGB Conc 33.3 g/dl (31.0-36.0); Mean Corpuscular Hemoglobin 30.6 pg (27.0-33.0); Mean Corpuscular Volume 91.9 fL (80.0-98.0); NRBC Abs Auto 0.000 X10*3/uL (0.0-0.012); NRBC Pct Auto 0.0 /100WBC (0.0-0.2); Platelet Count 191 X10*3/uL (160-400); Red Blood Count 5.16 X10*6/uL (4.60-5.80); White Blood Count 6.3 X10*3/uL (4.8-10.8)
[2025-07-24 18:56] LABS: Alanine Aminotransferase 51 U/L (0-40); Albumin Level 4.7 g/dL (3.5-5.0); Alkaline Phosphatase 50 U/L (39-117); Anion Gap 13 (12-20); Aspartate Amino Transferase 36 U/L (5-37); Blood Urea Nitrogen 16 mg/dL (9-16); Calcium 9.6 mg/dL (8.4-10.2); Carbon Dioxide 28 mmol/L (22-29); Chloride 105 mmol/L (96-108); Estimated Glomerular Filt Rate > 60; Potassium 4.3 mmol/L (3.3-5.1); Sodium 142 mmol/L (135-145); Total Protein 7.3 g/dL (6.5-8.0)
[2025-07-30 21:14] LABS: HLA B27 Negative (Negative)
== END 2025-07-24 10:54 | disposition home or self-care (01) ==
LOC: HO.HKASLDS 10:53
PROVIDERS: PCP Internal Medicine; Visit Provider Student in an Organized Health Care Education/Training Program
DX: Z51.81 Encounter for therapeutic drug level monitoring (principal); M25.511 Pain in right shoulder; M25.521 Pain in right elbow; M25.522 Pain in left elbow; M25.531 Pain in right wrist; M25.532 Pain in left wrist; M25.552 Pain in left hip; M25.572 Pain in left ankle and joints of left foot; M25.571 Pain in right ankle and joints of right foot; M79.641 Pain in right hand; M79.642 Pain in left hand; M25.561 Pain in right knee; Z79.899 Other long term (current) drug therapy
CPT/HCPCS: 36415; 80053; 82306; 85025; 85652; 86140; 86431; 86812

== ENCOUNTER 2025-08-06 15:34 | Outpatient (REF) | payer BC, SELFPAY ==
--- NOTE | ~2025-08-06 | XR_ITS ---
EXAMINATION: XR ANKLE, bilateral CLINICAL INFORMATION: M25.50 - Pain in unspecified joint COMPARISON: None available. TECHNIQUE: AP, lateral, and mortise views lower extremity joint, bilateral ankle. FINDINGS: Right: Ankle mortise is congruent. There is no widening of the syndesmosis. Talar dome is intact. There are moderate calcaneal enthesophyte(s). There are vascular calcifications. Left: Ankle mortise is congruent. There is no widening of the syndesmosis. Talar dome is intact. There are small calcaneal enthesophyte(s). There are vascular calcifications. XR/XR Ankle Kevin min 3V IMPRESSION: Bilateral calcaneal spurs. Otherwise, unremarkable exam. Electronically signed by: Alejo Coles MD 08/06/2025 05:05 PM EDT
--- NOTE | ~2025-08-06 | XR_ITS ---
Exam: X-ray, bilateral knees.XR KNEE 3 VIEWS BILATERAL TECHNIQUE: Three views lower extremity joint, bilateral knees INDICATION: M25.50 - Pain in unspecified joint COMPARISON: None available. FINDINGS: RIGHT KNEE: There is no joint effusion. Joint spaces appears preserved. LEFT KNEE: There is no joint effusion. Joint spaces are preserved. XR/XR Knee Kevin 3V IMPRESSION: Right knee: Unremarkable Left knee: Unremarkable Electronically signed by: Alejo Coles MD 08/06/2025 05:07 PM EDT
--- NOTE | ~2025-08-06 | XR_ITS ---
Exam: XR HAND 3 VIEWS BILATERAL, bilateral hand x-rays TECHNIQUE: AP, lateral, and oblique views upper extremity, bilateral hands INDICATION: M25.50 - Pain in unspecified joint COMPARISON: None available. FINDINGS: RIGHT HAND: Joint spaces are preserved. There are minute marginal osteophyte involving second, third, and fifth DIP joints There is no joint diastases. There are vascular calcifications. LEFT HAND: There are minute marginal osteophyte involving DIP joints of the second, fourth, and fifth digits and the first MCP joint. Joint spaces are preserved. There is no joint diastases. There are vascular calcifications. XR/XR Hand Bilat min 3v IMPRESSION: Right hand: Minimal evidence of osteoarthritis. Left hand: Minimal evidence of osteoarthritis. Electronically signed by: Alejo Coles MD 08/06/2025 05:10 PM EDT
--- NOTE | ~2025-08-06 | XR_ITS ---
Exam: XR FOOT 3 OR MORE VIEWS BILATERAL, bilateral foot x-rays TECHNIQUE: AP, OBL and lateral views lower extremity, bilateral feet INDICATION: M25.50 - Pain in unspecified joint COMPARISON: None available. FINDINGS: RIGHT FOOT: Joint spaces are preserved. No fractures identified. There is no joint malalignment or diastases. There are moderate calcaneal spurs. LEFT FOOT: Joint spaces are preserved. No fractures identified. There is no joint malalignment or diastases. There are small calcaneal spurs. XR/XR Foot Kevin 3V IMPRESSION: Right foot: Unremarkable Left foot: Unremarkable Electronically signed by: Alejo Coles MD 08/06/2025 05:08 PM EDT RP
== END 2025-08-06 15:35 | disposition home or self-care (01) ==
LOC: HO.XRAY 15:34
PROVIDERS: PCP Internal Medicine; Visit Provider Student in an Organized Health Care Education/Training Program
DX: M25.541 Pain in joints of right hand (principal); M25.572 Pain in left ankle and joints of left foot; M25.571 Pain in right ankle and joints of right foot; M25.562 Pain in left knee; M25.561 Pain in right knee
CPT/HCPCS: 73130; 73562; 73610; 73630

== ENCOUNTER → 2025-08-06 15:43 | Outpatient (BNV) | payer BC, SELFPAY | PROVIDERS: PCP Internal Medicine; Visit Provider Radiology Diagnostic Radiology | DX: M25.561 Pain in right knee (principal); M25.562 Pain in left knee; M79.641 Pain in right hand; M79.642 Pain in left hand; M77.31 Calcaneal spur, right foot; M77.32 Calcaneal spur, left foot; M79.671 Pain in right foot; M79.672 Pain in left foot | CPT/HCPCS: 73130; 73562; 73610; 73630 ==